=== PATIENT | male | born 1960 | race Caucasian/White ===

== ENCOUNTER 2020-10-07 09:23 | Emergency (ER) | payer OTHER ==
[2020-10-07 09:31] VITALS: BP 135/66; PULSE 118; RESP 16; TEMP 97.8
[2020-10-07] MEDS ORDERED: SODIUM CHLORIDE 0.9% 1,000 ML IV SCH (09:45)
--- NOTE | 2020-10-07 09:48 | ED ---
Lower Extremity Injury HPI - General Chief Complaint: Extremity Injury, Lower Stated Complaint: Stepped on nail/[facility] Time Seen by Provider: 10/07/20 09:33 Source: patient Mode of arrival: ambulatory Limitations: no limitations - History of Present Illness Initial Comments: 59-year-old male presents with left foot pain swelling and infection that he noticed yesterday. Patient states he's been stepping on a nail for the last 5 days that was embedded into his boot. Patient states he didn't notice the pain until yesterday. Patient did have low-grade fever of 99.9. Patient feels better today but it is sore to walk on. Patient does admit to having diabetes when he was younger but has not been to a doctor in over 20 years. Patient states he does check his blood sugars monthly and they're usually run about 150. Patient denies neuropathy. MD Complaint: foot injury -: days(s) (5) Place: work (nail in boot) Improves With: cold therapy, immobilization Worsens With: weight bearing, movement, palpation Context: stepped on nail Treatments Prior to Arrival: other (none) - Related Data Previous Rx's Medication Instructions Recorded Cephalexin [Keflex] 500 mg PO Q8HR #30 cap 10/07/20 Allergies Allergy/AdvReac Type Severity Reaction Status Date / Time No Known Allergies Allergy Verified 10/07/20 09:31 Review of Systems ROS Statement: Those systems with pertinent positive or pertinent negative responses have been documented in the HPI. ROS Other: All systems not noted in ROS Statement are negative. Constitutional: Reports: fever, chills. Denies: weakness Musculoskeletal: Reports: arthralgia (left foot) Past Medical History Additional Past Medical History / Comment(s): Dt controlled DM History of Any Multi-Drug Resistant Organisms: None Reported Past Surgical History: No Surgical Hx Reported, Orthopedic Surgery, Tonsillectomy Past Psychological History: No Psychological Hx Reported Smoking Status: Current every day smoker Past Alcohol Use History: Rare Past Drug Use History: None Reported General Exam Limitations: no limitations General appearance: alert, in no apparent distress Head exam: Present: atraumatic, normocephalic, normal inspection ENT exam: Present: normal exam, mucous membranes moist Respiratory exam: Present: normal lung sounds bilaterally. Absent: respiratory distress, wheezes, rales, rhonchi, stridor Cardiovascular Exam: Present: regular rate, normal rhythm, normal heart sounds. Absent: systolic murmur, diastolic murmur, rubs, gallop, clicks Left Hip exam: Present: full ROM Upper Leg exam: Present: normal inspection, full ROM. Absent: tenderness, swelling Knee exam: Present: normal inspection, full ROM. Absent: tenderness, swelling Lower Leg exam: Present: normal inspection, full ROM, swelling (distal LE). Absent: tenderness Ankle exam: Present: normal inspection, full ROM, tenderness. Absent: swelling (medial) Foot/Toe exam: Present: full ROM, tenderness, swelling, erythema, puncture wound (large ulcer .5 cm x 1 cm with skin breakdown and some drainage, large amounts of erythema, + 1 pitting edema. good pedal pulse ). Absent: normal inspection Neurovascular tendon exam: Present: no vascular compromise. Absent: pulse deficit, abnormal cap refill, sensory deficit Gait: observed and limited by pain (slight limp) Course Vital Signs 10/07/20 09:26 Temperature 97.8 F Pulse Rate 118 H Respiratory 16 Rate Blood Pressure 135/66 O2 Sat by Pulse 99 Oximetry Medical Decision Making - Medical Decision Making After reviewing labs noticed blood sugar of 572 discussed with patient that I think he should be admitted due to elevated blood sugar and diabetes. Patient refuses to stay he just wants an antibiotic and to be discharged. Patient attributes to the food that he ate this morning of a chocolate bar chocolate milk and hamburger. I tried to educate him on the fact that this has been elevated for a while but he does not agree. Patient is not wanting to be admitted today. His x-ray does not show any osteomyelitis. Patient will be discharged AMA on antibiotics and we will give him a low-dose insulin while in the emergency room. Patient needs close follow-up with family doctor and referral to an court transcriber. After talking with the nurse Josselin patient refused insulin and refuses any other treatment. Patient just wants to leave AMA with his prescription for antibiotic. Patient explained multiple times that he has critical blood sugar level along with critical infection that needs more attention than outpatient treatment at this time however patient refuses and leaves AMA - Lab Data Result diagrams: 10/07/20 09:56 10/07/20 09:56 Lab Results 10/07/20 10/07/20 10/07/20 Range/Units 09:56 09:56 10:12 WBC 9.3 (3.8-10.6) k/uL RBC 3.76 L (4.30-5.90) m/uL Hgb 11.9 L (13.0-17.5) gm/dL Hct 36.1 L (39.0-53.0) % MCV 96.0 (80.0-100.0) fL MCH 31.6 (25.0-35.0) pg MCHC 33.0 (31.0-37.0) g/dL RDW 11.9 (11.5-15.5) % Plt Count 437 (150-450) k/uL MPV 6.9 Neutrophils % 79 % Lymphocytes % 12 % Monocytes % 4 % Eosinophils % 3 % Basophils % 1 % Neutrophils # 7.3 (1.3-7.7) k/uL Lymphocytes # 1.1 (1.0-4.8) k/uL Monocytes # 0.3 (0-1.0) k/uL Eosinophils # 0.3 (0-0.7) k/uL Basophils # 0.0 (0-0.2) k/uL Sodium 134 L (137-145) mmol/L Potassium 5.1 (3.5-5.1) mmol/L Chloride 97 L (98-107) mmol/L Carbon Dioxide 26 (22-30) mmol/L Anion Gap 11 mmol/L BUN 27 H (9-20) mg/dL Creatinine 0.72 (0.66-1.25) mg/dL Est GFR (CKD-EPI)AfAm >90 (>60 ml/min/1.73 sqM) Est GFR (CKD-EPI)NonAf >90 (>60 ml/min/1.73 sqM) Glucose 572 H* (74-99) mg/dL Plasma Lactic Acid Darvin 1.0 (0.7-2.0) mmol/L Calcium 9.5 (8.4-10.2) mg/dL Total Bilirubin 0.5 (0.2-1.3) mg/dL AST 16 L (17-59) U/L ALT 12 (4-49) U/L Alkaline Phosphatase 97 (38-126) U/L Total Protein 6.3 (6.3-8.2) g/dL Albumin 3.3 L (3.5-5.0) g/dL Disposition Clinical Impression: Cellulitis, Wound cellulitis, Ulcer, Uncontrolled blood glucose Disposition: Left Against Medical Advice Condition: Critical Instructions (If sedation given, give patient instructions): How to Check your Blood Sugar (ED), Cellulitis (ED), Diabetic Foot Ulcers (ED), Type 2 Diabetes in Adults: New Diagnosis (ED) Prescriptions: Cephalexin [Keflex] 500 mg PO Q8HR #30 cap Is patient prescribed a controlled substance at d/c from ED?: No Referrals: None,Stated [Primary Care Provider] - 1-2 days Flynn Devi [STAFF PHYSICIAN] - 1-2 days Jeyson Cedeño MD [REFERRING] - 1-2 days Time of Disposition: 11:55
[2020-10-07 10:14] LABS: Basophils % (A) 1 %; Eosinophils # (A) 0.3 k/uL (0-0.7); Eosinophils % (A) 3 %; HCT 36.1 % (39.0-53.0); HGB 11.9 gm/dL (13.0-17.5); Lymphocytes # (A) 1.1 k/uL (1.0-4.8); Lymphocytes % (A) 12 %; MCH 31.6 pg (25.0-35.0); Mean Platelet Volume 6.9; Monocytes # (A) 0.3 k/uL (0-1.0); Monocytes % (A) 4 %; Neutrophils # (A) 7.3 k/uL (1.3-7.7); Neutrophils % (A) 79 %; Platelet Count 437 k/uL (150-450); RBC 3.76 m/uL (4.30-5.90); RDW 11.9 % (11.5-15.5); WBC 9.3 k/uL (3.8-10.6)
--- NOTE | 2020-10-07 10:23 | XR ---
EXAMINATION TYPE: XR foot complete LT DATE OF EXAM: 10/07/2020 CLINICAL HISTORY: pain TECHNIQUE: Frontal, lateral and oblique images of the left foot are obtained. COMPARISON: None. FINDINGS: There is no acute fracture/dislocation evident. The joint spaces appear within normal ingram its. Lateral soft tissue wound noted. No evidence for radiopaque foreign body. No evidence for osteom yelitis. IMPRESSION: There is no acute fracture or dislocation. ICD 10 NO FRACTURE, INITIAL EVALUATION
[2020-10-07 10:25] LABS: ALT 12 U/L (4-49); AST 16 U/L (17-59); African American GFR (CKD) >90 (>60 ml/min/1.73 sqM); Albumin 3.3 g/dL (3.5-5.0); Alkaline Phosphatase 97 U/L (38-126); Anion Gap 11 mmol/L; Blood Urea Nitrogen 27 mg/dL (9-20); Calcium 9.5 mg/dL (8.4-10.2); Carbon Dioxide 26 mmol/L (22-30); Chloride 97 mmol/L (98-107); Non-African American GFR(CKD) >90 (>60 ml/min/1.73 sqM); Potassium 5.1 mmol/L (3.5-5.1); Sodium 134 mmol/L (137-145); Total Bilirubin 0.5 mg/dL (0.2-1.3); Total Protein 6.3 g/dL (6.3-8.2)
[2020-10-07 10:48] LABS: Glucose 572 mg/dL (74-99)
[2020-10-07] MEDS ORDERED: INSULIN ASPART (NovoLOG) 100 UNIT/ML VIAL SQ ONE (11:04)
[2020-10-07 21:56] LABS: Hemoglobin A1C 14.6 % (4.0-6.0)
== END 2020-10-07 12:00 | disposition left against medical advice (07) ==
LOC: EC 09:23
DX: L03.116 Cellulitis of left lower limb (principal); E11.621 Type 2 diabetes mellitus with foot ulcer; L97.521 Non-pressure chronic ulcer of other part of left foot limited to breakdown of skin; E11.65 Type 2 diabetes mellitus with hyperglycemia; F17.200 Nicotine dependence, unspecified, uncomplicated; W45.0XXA Nail entering through skin, initial encounter
CPT/HCPCS: 96365; 99283; 36415; 80053; 83605; 85025; 87040; 87070; 87205; 83036; 73630; J0696

== ENCOUNTER 2020-11-02 08:19 | Inpatient (IN) | payer OTHER ==
[2020-11-02] MEDS ORDERED: HYDROmorphone 0.5 MG/0.5 ML SYRINGE IVP STA ×2 (08:35→10:16)
[2020-11-02] MEDS ORDERED: ONDANSETRON 4 MG/2 ML VIAL IVP STA (08:35)
[2020-11-02] MEDS ORDERED: VANCOMYCIN IV PER PHARMACY 1 EACH MISC MISCELLANE PRN (08:36)
[2020-11-02] MEDS ORDERED: PIPERACILLIN-TAZOBACTAM 3.375 GM in SODIUM CHLORIDE 0.9% 100 ML IVPB STA (08:36)
[2020-11-02] MEDS ORDERED: SODIUM CHLORIDE 0.9% 1,000 ML IV ONE ×3 (08:36→18:58)
[2020-11-02] MEDS ORDERED: SODIUM CHLORIDE 0.9% 2,000 ML IV ONE (08:37)
[2020-11-02] MEDS ORDERED: DIPH,PERTUS(ACELL)TETVAC-LF 0.5 ML VIAL IM ONE (08:56)
[2020-11-02] MEDS: SODIUM CHLORIDE 0.9% 1,000 ML IV SCH (09:00)
--- NOTE | 2020-11-02 09:01 | ED ---
Lower Extremity Injury HPI - General Source: patient, RN notes reviewed Mode of arrival: ambulatory Limitations: no limitations <Oscar Contreras - Last Filed: 11/02/20 10:32> <Yamil Voss - Last Filed: 11/02/20 10:52> - General Chief Complaint: Extremity Injury, Lower Stated Complaint: [facility] - Foot Injury Time Seen by Provider: 11/02/20 08:27 - History of Present Illness Initial Comments: This is a 60-year-old male presents emergency Department with chief complaint of an infection on the left foot. Patient states this started after having small nail in his boot which he did not know. Patient states that was rolling on his foot. Sterile a small infection states that his leg goes states it's very rafa nful, draining fluid, open wound. Patient states he cannot tolerate it has not been any treatment. Patient states his tetanus is not up-to-date. Patient denies any known fever. 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 (Oscar Contreras) - Related Data Previous Rx's Medication Instructions Recorded Cephalexin [Keflex] 500 mg PO Q8HR #30 cap 10/07/20 Allergies Allergy/AdvReac Type Severity Reaction Status Date / Time No Known Allergies Allergy Verified 11/02/20 08:22 Review of Systems ROS Other: All systems not noted in ROS Statement are negative. <Oscar Contreras - Last Filed: 11/02/20 10:32> ROS Other: All systems not noted in ROS Statement are negative. <Yamil Voss - Last Filed: 11/02/20 10:52> ROS Statement: Those systems with pertinent positive or pertinent negative responses have been documented in the HPI. Past Medical History Past Medical History: Diabetes Mellitus Additional Past Medical History / Comment(s): Dt controlled DM History of Any Multi-Drug Resistant Organisms: None Reported Past Surgical History: No Surgical Hx Reported, Orthopedic Surgery, Tonsillectomy Past Psychological History: No Psychological Hx Reported Smoking Status: Current every day smoker Past Alcohol Use History: Rare Past Drug Use History: None Reported <Oscar Contreras - Last Filed: 11/02/20 10:32> General Exam Limitations: no limitations General appearance: alert, in no apparent distress Neck exam: Present: normal inspection. Absent: tenderness, meningismus, lymphadenopathy Respiratory exam: Present: normal lung sounds bilaterally. Absent: respiratory distress, wheezes, rales, rhonchi, stridor Cardiovascular Exam: Present: normal rhythm, tachycardia, normal heart sounds. Absent: systolic murmur, diastolic murmur, rubs, gallop, clicks Extremities exam: Present: other (Left foot lateral to the dorsal and into the plantar surface is a large open peeling draining wound with open tissue, foul order) Neurological exam: Present: alert Skin exam: Present: warm, dry, intact, normal color. Absent: rash <Oscar Contreras - Last Filed: 11/02/20 10:32> Course Vital Signs 11/02/20 11/02/20 08:22 10:00 Temperature 98.6 F 98.4 F Pulse Rate 128 H 101 H Respiratory 18 18 Rate Blood Pressure 123/73 126/68 O2 Sat by Pulse 100 98 Oximetry Medical Decision Making - Lab Data Result diagrams: 11/02/20 08:49 11/02/20 08:49 <Oscar Contreras - Last Filed: 11/02/20 10:32> - Lab Data Result diagrams: 11/02/20 08:49 11/02/20 08:49 <Yamil Voss - Last Filed: 11/02/20 10:52> - Medical Decision Making 60-year-old male presented for left foot infection. Patient has a large wound on the lateral portion of his foot patient's found to have diabetic foot ulcer with osteomyelitis gas formation. Patient has left leg but doesn't fasciitis. Patient has mild hyponatremia, uncontrolled diabetes with hyperglycemia. Case was discussed with Dr. Rowell who accepts admission consult and case discussed with Dr. Gruber vascular who recommended CT of the leg this was ordered. Patient was initially administered and IV fluids, broad-spectrum antibiotics including Zosyn, vancomycin, clindamycin.. (Oscar Contreras) 60-year-old male with presented with one month history of left foot pain swelling. Patient has an open wet gangrene of the lateral foot with crepitus in the ankle and calf lateral aspect with pain, erythema. There is concern for deep space infection, neck testing fasciitis. Workup was initiated he has a leukocytosis. X-ray confirming soft tissue gas. We did initiate Zosyn and vancomycin while in the emergency department as well as clindamycin. I discussed case with Dr. Najera covering for vascular surgery who recommends patient kept nothing by mouth, requests CT of the leg with contrast and will evaluate the patient urgently. Case discussed with Dr. Loo who will admit. (Yamil Voss) - Lab Data Lab Results 11/02/20 11/02/20 11/02/20 Range/Units 08:49 08:49 08:49 WBC 16.4 H (3.8-10.6) k/uL RBC 3.25 L (4.30-5.90) m/uL Hgb 9.8 L D (13.0-17.5) gm/dL Hct 31.9 L (39.0-53.0) % MCV 98.1 (80.0-100.0) fL MCH 30.1 (25.0-35.0) pg MCHC 30.7 L (31.0-37.0) g/dL RDW 13.8 (11.5-15.5) % Plt Count 487 H (150-450) k/uL MPV 7.7 Neutrophils % 92 % Lymphocytes % 3 % Monocytes % 4 % Eosinophils % 0 % Basophils % 0 % Neutrophils # 15.1 H (1.3-7.7) k/uL Lymphocytes # 0.5 L (1.0-4.8) k/uL Monocytes # 0.6 (0-1.0) k/uL Eosinophils # 0.0 (0-0.7) k/uL Basophils # 0.0 (0-0.2) k/uL Hypochromasia Slight Sodium 124 L (137-145) mmol/L Potassium 4.7 (3.5-5.1) mmol/L Chloride 89 L (98-107) mmol/L Carbon Dioxide 24 (22-30) mmol/L Anion Gap 11 mmol/L BUN 22 H (9-20) mg/dL Creatinine 0.65 L (0.66-1.25) mg/dL Est GFR (CKD-EPI)AfAm >90 (>60 ml/min/1.73 sqM) Est GFR (CKD-EPI)NonAf >90 (>60 ml/min/1.73 sqM) Glucose 352 H (74-99) mg/dL Plasma Lactic Acid Darvin 2.1 H* (0.7-2.0) mmol/L Calcium 8.3 L (8.4-10.2) mg/dL Total Bilirubin 0.9 (0.2-1.3) mg/dL AST 56 (17-59) U/L ALT 29 (4-49) U/L Alkaline Phosphatase 148 H (38-126) U/L C-Reactive Protein 33.1 H (<1.0) mg/dL Total Protein 6.2 L (6.3-8.2) g/dL Albumin 2.8 L (3.5-5.0) g/dL Critical Care Time Critical Care Time: Yes Total Critical Care Time: 35 <Oscar Contreras - Last Filed: 11/02/20 10:32> Disposition <Oscar Contreras - Last Filed: 11/02/20 10:32> <Yamil Voss - Last Filed: 11/02/20 10:52> Clinical Impression: Necrotizing fasciitis of lower leg, Diabetic ulcer of left foot, Foot osteomyelitis, left, Hyponatremia, Hyperglycemia Disposition: ADMITTED IP TO THIS [facility] Condition: Serious Referrals: None,Stated [Primary Care Provider] - 1-2 days
[2020-11-02] MEDS ORDERED: VANCOMYCIN 1,750 MG in SODIUM CHLORIDE 0.9% 500 ML 500 ML IVPB ONE (09:30)
[2020-11-02 09:47] LABS: ALT 29 U/L (4-49); AST 56 U/L (17-59); African American GFR (CKD) >90 (>60 ml/min/1.73 sqM); Albumin 2.8 g/dL (3.5-5.0); Alkaline Phosphatase 148 U/L (38-126); Anion Gap 11 mmol/L; Blood Urea Nitrogen 22 mg/dL (9-20); Calcium 8.3 mg/dL (8.4-10.2); Carbon Dioxide 24 mmol/L (22-30); Chloride 89 mmol/L (98-107); Glucose 352 mg/dL (74-99); Non-African American GFR(CKD) >90 (>60 ml/min/1.73 sqM); Potassium 4.7 mmol/L (3.5-5.1); Sodium 124 mmol/L (137-145); Total Bilirubin 0.9 mg/dL (0.2-1.3); Total Protein 6.2 g/dL (6.3-8.2)
[2020-11-02] MEDS ORDERED: CLINDAMYCIN 600 MG in DEXTROSE 5% IN WATER 50 ML IVPB STA ×2 (10:16)
[2020-11-02 10:20] LABS: Basophils % (A) 0 %; Eosinophils % (A) 0 %; HCT 31.9 % (39.0-53.0); Hypochromasia Slight; Lymphocytes # (A) 0.5 k/uL (1.0-4.8); Lymphocytes % (A) 3 %; MCH 30.1 pg (25.0-35.0); MCHC 30.7 g/dL (31.0-37.0); MCV 98.1 fL (80.0-100.0); Mean Platelet Volume 7.7; Monocytes # (A) 0.6 k/uL (0-1.0); Monocytes % (A) 4 %; Neutrophils # (A) 15.1 k/uL (1.3-7.7); Neutrophils % (A) 92 %; Platelet Count 487 k/uL (150-450); RBC 3.25 m/uL (4.30-5.90); RDW 13.8 % (11.5-15.5); WBC 16.4 k/uL (3.8-10.6)
--- NOTE | 2020-11-02 10:20 | XR ---
EXAMINATION TYPE: XR foot complete LT DATE OF EXAM: 11/02/2020 CLINICAL HISTORY: Infection TECHNIQUE: Frontal, lateral, and oblique images of the left foot are obtained. COMPARISON: 10/07/2020 FINDINGS: There is a soft tissue defect of the lateral foot at the base of the fifth metatarsal with new lucenc y of of the base of the fifth metatarsal, worrisome for osteomyelitis. There is also extensive soft t issue gas seen throughout the midfoot and forefoot both dorsally and plantarly which is highly concer pastora for necrotizing fasciitis with also soft tissue gas extending into the lower calf. IMPRESSION: There is a soft tissue defect of the lateral foot at the base of the fifth metatarsal with new lucenc y of of the base of the fifth metatarsal, worrisome for OSTEOMYELITIS. There is also extensive soft t issue gas seen throughout the midfoot and forefoot both dorsally and plantarly which is highly concer pastora for NECROTIZING FASCIITIS with also soft tissue gas extending into the lower calf. X-rays could be obtained to evaluate for soft tissue gas, as clinically warranted. Findings communicated to the ordering clinician (10:15 AM 11/02/2020 via telephone) with the recommend ation for emergent surgical referral for possible necrotizing fasciitis and plain radiographs of the tibia/fibula.
[2020-11-02 10:23] LABS: HGB 9.8 gm/dL (13.0-17.5)
[2020-11-02] MEDS ORDERED: ONDANSETRON 4 MG/2 ML VIAL IVP PRN (10:29)
[2020-11-02] MEDS ORDERED: NALOXONE 0.4 MG/ML 1 ML VIAL IV PRN (10:29)
[2020-11-02 10:33] LABS: C Reactive Protein 33.1 mg/dL (<1.0)
--- NOTE | 2020-11-02 11:37 | CT ---
EXAMINATION TYPE: CT lower extremity LT w con DATE OF EXAM: 11/02/2020 COMPARISON: None HISTORY: left foot infection, left leg swelling and redness CT DLP: 842.2 mGycm Automated exposure control for dose reduction was used. CONTRAST: Performed with IV Contrast, patient injected with 100 mL of Isovue 300. Unenhanced CT of the left low er extremity was performed from the left foot FINDINGS: There is extensive soft tissue edema involving the left foot soft tissue ulceration. There is air wit hin the soft tissues as well as the osseous structures of the midfoot and the bases of the second thr ough 5 digits with osseous defects seen compatible with osteomyelitis. Air is noted to extend into th e calf and up into the left thigh medially. There is evidence of left inguinal adenopathy. IMPRESSION: 1. Findings are compatible with extensive osteomyelitis of the left foot with intraosseous air and meredith ny destructive process noted at the bases of the second third fourth and fifth metatarsals. There is soft tissue ulceration noted with extensive soft tissue gas identified throughout the mid foot and fo refoot extending into the calf and thigh felt to reflect necrotizing fasciitis.
--- NOTE | 2020-11-02 13:07 | P.GSCN ---
History of Present Illness Consult date: 11/02/20 Reason for Consult: Necrotizing fasciitis of left foot Requesting physician: Oscar Contreras History of present illness: This is a 60-year-old white male who presented to the emergency department with complaints of a left foot wound. Patient states the wound started 5-6 weeks ago after he had a nail in his work boot and wore the boot for several days not realizing the nail was rubbing on his foot. He was seen at the end of September in the emergency department, he left AGAINST MEDICAL ADVICE and was given oral Keflex and completed the antibiotic. He states he did not have any outpatient follow-up. He states he the wound has progressively gotten worse despite the antibiotics and is causing him significant pain. He states his pain is a 10 out of 10, he has copious amounts of drainage from the foot. He denies any fever or chills. He denies any chest pain, shortness of breath, nausea, vomiting, or abdominal pain. He has a past medical history including diabetes mellitus and is a current smoker of one pack per day. He underwent an x-ray of the left foot that shows soft tissue defect of the lateral foot at the base of the fifth metatarsal with new lucency of the base of the metatarsal worrisome for oste omyelitis. There is extensive soft tissue gas seen throughout the midfoot and forefoot both dorsally and plantarly which is highly concerning for necrotizing fasciitis was also soft tissue gas extending into the lower calf. He also underwent a CT of the left lower extremity that showed findings compatible with extensive osteomyelitis of the left lobe with intraosseous air and bony destructive process noted at the bases of the second third fourth and fifth metatarsals. There is soft tissue ulceration noted with extensive soft tissue gas identified throughout the midfoot and forefoot extending into the calf and thigh felt to reflect necrotizing fasciitis. Review of Systems A 14 point review of systems was completed and all pertinent positives and negatives as stated in the HPI. Past Medical History Past Medical History: Diabetes Mellitus Additional Past Medical History / Comment(s): Dt controlled DM History of Any Multi-Drug Resistant Organisms: None Reported Past Surgical History: No Surgical Hx Reported, Orthopedic Surgery, Tonsillectomy Past Psychological History: No Psychological Hx Reported Smoking Status: Current every day smoker Past Alcohol Use History: Rare Past Drug Use History: None Reported Medications and Allergies Home Medications Medication Instructions Recorded Confirmed Type No Known Home Medications 11/02/20 11/02/20 History Allergies Allergy/AdvReac Type Severity Reaction Status Date / Time No Known Allergies Allergy Verified 11/02/20 11:23 Surgical - Exam Vital Signs Temp Pulse Resp BP Pulse Ox 98.6 F 128 H 18 123/73 100 11/02/20 08:22 11/02/20 08:22 11/02/20 08:22 11/02/20 08:22 11/02/20 08:22 General appearance: The patient is alert, oriented, in no acute distress. HET: Head is normocephalic and atraumatic. Pupils are equal and reactive. Oropharynx is clear without lesions. Neck: Supple without lymphadenopathy. Trachea midline. Heart: S1 S2. Regular rate and rhythm. Lungs: No crackles or wheezes are heard. Abdomen: Soft, nontender, nondistended with bowel sounds. No peritoneal signs. No palpable organomegaly or masses. Extremities: Normal skin color and turgor. No cyanosis, rash, ulceration, clubbing, or edema. Radial and pedal pulses are 2/4 bilaterally. Neurological: No focal deficits. Strength and sensation are grossly intact. Results - Labs 11/02/20 08:49 11/02/20 08:49 Abnormal Lab Results - Last 24 Hours (Table) 11/02/20 11/02/20 11/02/20 Range/Units 08:49 08:49 08:49 WBC 16.4 H (3.8-10.6) k/uL RBC 3.25 L (4.30-5.90) m/uL Hgb 9.8 L D (13.0-17.5) gm/dL Hct 31.9 L (39.0-53.0) % MCHC 30.7 L (31.0-37.0) g/dL Plt Count 487 H (150-450) k/uL Neutrophils # 15.1 H (1.3-7.7) k/uL Lymphocytes # 0.5 L (1.0-4.8) k/uL Sodium 124 L (137-145) mmol/L Chloride 89 L (98-107) mmol/L BUN 22 H (9-20) mg/dL Creatinine 0.65 L (0.66-1.25) mg/dL Glucose 352 H (74-99) mg/dL Plasma Lactic Acid Darvin 2.1 H* (0.7-2.0) mmol/L Calcium 8.3 L (8.4-10.2) mg/dL Alkaline Phosphatase 148 H (38-126) U/L C-Reactive Protein 33.1 H (<1.0) mg/dL Total Protein 6.2 L (6.3-8.2) g/dL Albumin 2.8 L (3.5-5.0) g/dL Diabetes panel 11/02/20 Range/Units 08:49 Sodium 124 L (137-145) mmol/L Potassium 4.7 (3.5-5.1) mmol/L Chloride 89 L (98-107) mmol/L Carbon Dioxide 24 (22-30) mmol/L BUN 22 H (9-20) mg/dL Creatinine 0.65 L (0.66-1.25) mg/dL Glucose 352 H (74-99) mg/dL Calcium 8.3 L (8.4-10.2) mg/dL AST 56 (17-59) U/L ALT 29 (4-49) U/L Alkaline Phosphatase 148 H (38-126) U/L Total Protein 6.2 L (6.3-8.2) g/dL Albumin 2.8 L (3.5-5.0) g/dL Calcium panel 11/02/20 Range/Units 08:49 Calcium 8.3 L (8.4-10.2) mg/dL Albumin 2.8 L (3.5-5.0) g/dL Pituitary panel 11/02/20 Range/Units 08:49 Sodium 124 L (137-145) mmol/L Potassium 4.7 (3.5-5.1) mmol/L Chloride 89 L (98-107) mmol/L Carbon Dioxide 24 (22-30) mmol/L BUN 22 H (9-20) mg/dL Creatinine 0.65 L (0.66-1.25) mg/dL Glucose 352 H (74-99) mg/dL Calcium 8.3 L (8.4-10.2) mg/dL Adrenal panel 11/02/20 Range/Units 08:49 Sodium 124 L (137-145) mmol/L Potassium 4.7 (3.5-5.1) mmol/L Chloride 89 L (98-107) mmol/L Carbon Dioxide 24 (22-30) mmol/L BUN 22 H (9-20) mg/dL Creatinine 0.65 L (0.66-1.25) mg/dL Glucose 352 H (74-99) mg/dL Calcium 8.3 L (8.4-10.2) mg/dL Total Bilirubin 0.9 (0.2-1.3) mg/dL AST 56 (17-59) U/L ALT 29 (4-49) U/L Alkaline Phosphatase 148 H (38-126) U/L Total Protein 6.2 L (6.3-8.2) g/dL Albumin 2.8 L (3.5-5.0) g/dL - Imaging Comments: x-ray of the left foot that shows soft tissue defect of the lateral foot at the base of the fifth metatarsal with new lucency of the base of the metatarsal worrisome for osteomyelitis. There is extensive soft tissue gas seen throughout the midfoot and forefoot both dorsally and plantarly which is highly concerning for necrotizing fasciitis was also soft tissue gas extending into the lower calf. CT of the left lower extremity that showed findings compatible with extensive osteomyelitis of the left lobe with intraosseous air and bony destructive process noted at the bases of the second third fourth and fifth metatarsals. There is soft tissue ulceration noted with extensive soft tissue gas identified throughout the midfoot and forefoot extending into the calf and thigh felt to reflect necrotizing fasciitis. Assessment and Plan Assessment: 1. Left foot diabetic wound with possible necrotizing fasciitis 2. Diabetes mellitus 3. Current smoker Plan: 1. Continue IV antibiotics 2. X-ray and CT of left lower extremity reviewed 3. Consult infectious disease 4. Keep nothing by mouth 5. Patient scheduled to go to the operating room for left foot wound debridement, possible below the knee amputation, possible [id number] amputation 6. Further recommendations per vascular surgeon was further evaluated Thank you for this consultation and allowing us take part in the plan of care of your patient during his hospital stay The impression and plan of care has been dictated as directed. Dr. Najera I performed a history and examination of this patient, discussed the same with the dictator. I agree with the dictator's note ,documented as a scribe. Any additional findings or plans will be noted.
[2020-11-02] MEDS ORDERED: ACETAMINOPHEN IV (For NPO) 1,000 MG in EMPTY BAG 1 BAG IVPB STA (13:24)
[2020-11-02 13:45] LABS: Erythrocyte Sedimentation Rate 108 mm/hr (0-15)
[2020-11-02] MEDS ORDERED: IV FLUID CONTINUATION 1,000 ML IV ONE (14:22)
[2020-11-02 14:35] LABS: Glucose,Whole Blood 340 mg/dL (75-99)
[2020-11-02 14:35] LABS: Glucose,Whole Blood 354 mg/dL (75-99)
[2020-11-02] MEDS ORDERED: INSULIN ASPART (NovoLOG) 100 UNIT/ML VIAL SQ ONE (15:30)
[2020-11-02] MEDS ORDERED: ROCURONIUM 10 MG/ML (5 ML VIAL) IV ONE (16:14)
[2020-11-02] MEDS ORDERED: SUCCINYLCHOLINE CHLORIDE 100 MG/5 ML SYR IV ONE (16:14)
[2020-11-02] MEDS ORDERED: PROPOFOL 10 MG/ML 20 ML VIAL IV ONE (16:14)
[2020-11-02] MEDS ORDERED: NEOSTIGMINE 1 MG/ML 10 ML VIAL ONE (16:14)
[2020-11-02] MEDS ORDERED: PHENYLEPHRINE-0.9% NACL SYG 1,000 MCG/10 ML SYRINGE ONE (16:14)
[2020-11-02] MEDS ORDERED: MIDAZOLAM 2 MG/2 ML VIAL ONE (16:14)
[2020-11-02] MEDS ORDERED: LIDOCAINE 1% INJ 10MG/ML (20 ML MDV) ONE (16:14)
[2020-11-02] MEDS ORDERED: INSULIN REGULAR 100 UNIT/ML VIAL (IV) IV ONE (16:14)
[2020-11-02] MEDS ORDERED: GLYCOPYRROLATE 0.2 MG/ML 2 ML VIAL ONE (16:14)
[2020-11-02] MEDS ORDERED: fentaNYL (PF) 50 MCG/ML 2 ML AMP ONE (16:14)
[2020-11-02] MEDS ORDERED: HYDROmorphone (PF) 1 MG/ML ONE (16:14)
[2020-11-02 17:11] LABS: Glucose,Whole Blood 292 mg/dL (75-99)
[2020-11-02 18:00] LABS: Glucose,Whole Blood 276 mg/dL (75-99)
--- NOTE | 2020-11-02 18:05 | P.OP ---
Date of Procedure: 11/02/20 Preoperative Diagnosis: Gas gangrene left lower extremity extending from the foot to the mid thigh level. Postoperative Diagnosis: Same. Procedure(s) Performed: #1: Left kldgg-amz-qral amputation. #2: Application of negative pressure wound VAC therapy greater than 50 cm. Anesthesia: CATHYA Surgeon: Kelvin Najera Estimated Blood Loss (ml): 100 Pathology: none sent Condition: stable Disposition: floor Indications for Procedure: Patient is a 60-year-old male with long-standing history of diabetes mellitus as well as tobacco use who presented today to the emergency room with a chief complaint of open wound of his left foot. The patient met criteria for sepsis. Patient did eventually undergo computed tomography scan of his left lower extremity which demonstrated gas in the soft tissues extending from the foot to the calf and popliteal area to the posterior aspect of the left mid thigh. Examination demonstrated femoral popliteal pulses to be intact although DP and PT pulses are absent on the left. A stage IV wound was located on the lateral aspect of the left foot near the fifth metatarsal head with bowel smelling drainage coming from the wound. Crepitus of the soft tissue was noted to the mid thigh level. In order to control the advanced infectious process was felt the patient would be best served by [id number]-[id number] amputation as the leg was clearly nonviable. The procedure, risk and benefits were discussed with the patient. Patient wished to proceed. Description of Procedure: Patient was brought to the [facility] and placed in supine position Mr. general endotracheal anesthesia delivered by the department of anesthesiology. Patient had artery been placed on intravenously administered antibiotics. The left lobe STEMI sterilely prepped and draped in usual manner. [place] type incision was made in the skin and carried down through the soft tissues. Hemostasis was achieved using electrocautery. Quadriceps muscles were transected with electrocautery. The femoral artery and vein were identified. These were doubly clamped, transected and ligated. The femoral nerve was likewise clamped transected and ligated as proximally as possible. The periosteum of the femur was mobilized and utilizing a power saw of the femur was transected. The amputation was then completed with an amputation knife. The wound was inspected for hemostasis and this was judged be adequate. The wound was then irrigated copiously with saline solution and a black sponge wound VAC was placed in the wound with good seal noted. A culture of the infected tissues was obtained prior to closure. Patient was taken to the recovery area satisfactory and stable condition. Plan patient will return to the operating room and approximate 48 hours with anticipation of being able to perform a delayed primary closure of his wound.
--- NOTE | 2020-11-02 18:17 | HP ---
HISTORY AND PHYSICAL A 60-year-old white male who was here about 5-6 weeks ago with a wound on his foot. He was sent home with antibiotics. He never followed up with anybody or apparently he left against medical advice and went home. He comes back today. His pain is 10/10. He apparently has infection and gas under the skin seen to the mid foot. He is scheduled to get a below-knee amputation, as CT scan showed extensive osteomyelitis of the left leg. He has some bony destructive processes in the metatarsals. REVIEW OF SYMPTOMS: A 14-point review of systems otherwise is negative. PAST HISTORY: Diabetes mellitus, poorly controlled. MEDICINES: None. ALLERGIES: None. PHYSICAL EXAMINATION: VITAL SIGNS: Temperature is 98.6, pulse is 120s in the ER, respiratory 16 to 18, blood pressure 120s over 70s, O2 100%. HEENT: Normocephalic, atraumatic. Pupils equal, round, reactive. LUNGS: Clear. HEART: S1, S2. ABDOMEN: Soft. EXTREMITIES: As mentioned above. NEUROLOGIC: Cranial nerves are intact. LABORATORY DATA: Hemoglobin is 11.8, white count is 16.4, sodium 124, BUN is 22, creatinine 0.65, glucose 352. Lactic acid 2.1. ASSESSMENT: 1. Left foot diabetic wound with possible necrotizing fasciitis. 2. Uncontrolled diabetes mellitus. 3. Nicotine addiction. Continue IV antibiotics. Smoking cessation. Wound debridement versus amputation to be done today per Vascular secondary to extensive osteomyelitis of the left toe, interosseous and bony destruction 2nd to 5th metatarsals. Do Accu-Chek protocol. Treat with broad-spectrum antibiotics. Await for Vascular Surgeon. MMODL / IJN: [id number] /
[2020-11-02] MEDS: CEFEPIME 2 GM in SODIUM CHLORIDE 0.9% 100 ML IVPB SCH ×2 (19:21→23:35)
[2020-11-02 20:08] LABS: Glucose,Whole Blood 188 mg/dL (75-99)
[2020-11-02] MEDS: CLINDAMYCIN 900 MG in DEXTROSE 5% IN WATER 50 ML IVPB SCH ×2 (20:46)
[2020-11-02] MEDS: VANCOMYCIN 1,500 MG in SODIUM CHLORIDE 0.9% 250 ML IVPB SCH (20:46)
[2020-11-02] MEDS: INSULIN ASPART (NovoLOG) 100 UNIT/ML VIAL SQ SCH (20:58)
--- NOTE | 2020-11-02 23:51 | P.CONS ---
History of Present Illness - Reason for Consult Consult date: 11/02/20 necrotizing infection Requesting physician: Chicho Loo - Chief Complaint left foot nonhealing wound and pain x few days - History of Present Illness Patient is a 60-year-old male presenting to the ER this morning for evaluation of left foot pain swelling and redness present with the patient symptoms started a few weeks ago as the patient did have an injury from a needle in his boot with resultant laceration to the left foot lateral border area patient mention he did came to the ER about 2 to 3 weeks ago however was sent home is not really sure if he received an antibiotic or not patient now presenting back to the ER this morning for worsening of the wound to the left foot lateral border along with the pain and the swelling that has been extending to the left lower leg injury patient is going to be to be throbbing intensity 110/10 with no radiation with associated swelling redness and did have some drainage from his left foot wound area patient on presentation hospitalization was afebrile subjective spiked a fever of 102.74 The patient is tachycardic and utilizing a 16.4 creatinine was 0.65 the patient has been started on vancomycin infectious was consulted for further management patient did have x-rays of the foot which show soft tissue defect concerning for osteomyelitis of the left fifth metatarsal extensive soft tissue gas seen within midfoot and forefoot subsequently he did have a lower extremity CT which confirmed the finding and did mention the left extremity to the left lower leg CT was reviewed with the radiologist infectious disease was consulted for further management of antibiotic therapy. Past Medical History Past Medical History: Diabetes Mellitus Additional Past Medical History / Comment(s): Dt controlled DM History of Any Multi-Drug Resistant Organisms: None Reported Past Surgical History: No Surgical Hx Reported, Orthopedic Surgery, Tonsillectomy Past Psychological History: No Psychological Hx Reported Smoking Status: Current every day smoker Past Alcohol Use History: Rare Past Drug Use History: None Reported Medications and Allergies Home Medications Medication Instructions Recorded Confirmed Type No Known Home Medications 11/02/20 11/02/20 History Allergies Allergy/AdvReac Type Severity Reaction Status Date / Time No Known Allergies Allergy Verified 11/02/20 11:23 Physical Exam Vitals: Vital Signs Temp Pulse Resp BP Pulse Ox 11/02/20 10:00 98.4 F 101 H 18 126/68 98 11/02/20 08:22 98.6 F 128 H 18 123/73 100 Intake and Output 11/01/20 11/02/20 11/02/20 22:59 06:59 14:59 Other: Weight 83.915 kg Results CBC & Chem 7: 11/02/20 08:49 11/02/20 08:49 Labs: Abnormal Lab Results - Last 24 Hours (Table) 11/02/20 11/02/20 11/02/20 Range/Units 08:49 08:49 08:49 WBC 16.4 H (3.8-10.6) k/uL RBC 3.25 L (4.30-5.90) m/uL Hgb 9.8 L D (13.0-17.5) gm/dL Hct 31.9 L (39.0-53.0) % MCHC 30.7 L (31.0-37.0) g/dL Plt Count 487 H (150-450) k/uL Neutrophils # 15.1 H (1.3-7.7) k/uL Lymphocytes # 0.5 L (1.0-4.8) k/uL Sodium 124 L (137-145) mmol/L Chloride 89 L (98-107) mmol/L BUN 22 H (9-20) mg/dL Creatinine 0.65 L (0.66-1.25) mg/dL Glucose 352 H (74-99) mg/dL Plasma Lactic Acid Darvin 2.1 H* (0.7-2.0) mmol/L Calcium 8.3 L (8.4-10.2) mg/dL Alkaline Phosphatase 148 H (38-126) U/L C-Reactive Protein 33.1 H (<1.0) mg/dL Total Protein 6.2 L (6.3-8.2) g/dL Albumin 2.8 L (3.5-5.0) g/dL Assessment and Plan Assessment: -patient presented to hospital with sepsis in the sputum, fever tachycardia elevated white count sources left diabetic foot infection with a wound to the left foot lateral border and concern for necrotizing infection involving the foot and the leg will be recorded for the gram-positive as well as gram-negative in this patient with underlying diabetes uncontrolled (1) Diabetic ulcer of left foot Current Visit: Yes Status: Acute Code(s): E11.621 - TYPE 2 DIABETES MELLITUS WITH FOOT ULCER; L97.529 - NON-PRESSURE CHRONIC ULCER OTH PRT LEFT FOOT W UNSP SEVERITY SNOMED Code(s): 734277657 (2) Foot osteomyelitis, left Current Visit: Yes Status: Acute Code(s): M86.9 - OSTEOMYELITIS, UNSPECIFIED SNOMED Code(s): 9534481117133915 (3) Necrotizing fasciitis of lower leg Current Visit: Yes Status: Acute Code(s): M72.6 - NECROTIZING FASCIITIS SNOMED Code(s): 55524337 Plan: 1-with awaiting further surgical and deep culture 2-vancomycin pharmacy to dose her with a target trough of 15 while watching her kidney function and Vanco trough closely. 3-we will add cefepime 2 g every 8 and clindamycin 900 every 8 We will follow on clinical condition and cultures to further adjust medication if needed Thank you for this consultation we will follow the patient along with you Time with Patient: Greater than 30
[2020-11-03] MEDS: VANCOMYCIN 1,500 MG in SODIUM CHLORIDE 0.9% 250 ML IVPB SCH ×3 (02:05→20:24)
[2020-11-03] MEDS: HYDROmorphone 0.5 MG/0.5 ML SYRINGE IVP PRN ×5 (02:41→20:28)
[2020-11-03] MEDS: CLINDAMYCIN 900 MG in DEXTROSE 5% IN WATER 50 ML IVPB SCH ×6 (04:02→20:24)
[2020-11-03 06:42] LABS: Glucose,Whole Blood 195 mg/dL (75-99)
[2020-11-03] MEDS: SODIUM CHLORIDE 0.9% 1,000 ML IV SCH ×3 (07:00→16:02)
[2020-11-03] MEDS: INSULIN ASPART (NovoLOG) 100 UNIT/ML VIAL SQ SCH ×4 (08:05→20:24)
[2020-11-03] MEDS: CEFEPIME 2 GM in SODIUM CHLORIDE 0.9% 100 ML IVPB SCH ×2 (08:06→16:05)
[2020-11-03 08:38] LABS: ALT 25 U/L (4-49); AST 42 U/L (17-59); African American GFR (CKD) >90 (>60 ml/min/1.73 sqM); Albumin 2.1 g/dL (3.5-5.0); Albumin/Globulin Ratio 0.7; Alkaline Phosphatase 87 U/L (38-126); Anion Gap 5 mmol/L; Blood Urea Nitrogen 18 mg/dL (9-20); Carbon Dioxide 24 mmol/L (22-30); Chloride 100 mmol/L (98-107); Globulin 2.9 g/dL; Glucose 166 mg/dL (74-99); Non-African American GFR(CKD) >90 (>60 ml/min/1.73 sqM); Potassium 4.1 mmol/L (3.5-5.1); Sodium 129 mmol/L (137-145); Total Bilirubin 0.5 mg/dL (0.2-1.3)
[2020-11-03 11:06] LABS: HCT 22.6 % (39.6-50.0); HGB 7.2 g/dL (13.0-17.0); MCH 29.9 pg (27.0-32.0); MCHC 31.9 g/dL (32.0-37.0); MCV 93.8 fL (80.0-97.0); Mean Platelet Volume 9.9 fL (9.5-12.2); Platelet Count 339 X 10*3/uL (140-440); RBC 2.41 X 10*6/uL (4.40-5.60); RDW 13.4 % (11.5-14.5); WBC 12.22 X 10*3/uL (4.50-10.00)
[2020-11-03 11:42] LABS: Glucose,Whole Blood 272 mg/dL (75-99)
[2020-11-03 12:11] LABS: Basophils # (A) 0.03 X 10*3/uL (0.00-0.10); Basophils % (A) 0.2 %; Eosinophils # (A) 0.04 X 10*3/uL (0.04-0.35); Eosinophils % (A) 0.3 %; Lymphocytes # (A) 1.02 X 10*3/uL (0.90-5.00); Lymphocytes % (A) 8.3 %; Macrocytosis (M) 2+; Monocytes % (A) 5.7 %; Neutrophils # (A) 10.36 X 10*3/uL (1.80-7.70); Neutrophils % (A) 84.9 %
[2020-11-03 14:50] VITALS: BMI 25.1
[2020-11-03 16:28] LABS: Glucose,Whole Blood 280 mg/dL (75-99)
[2020-11-03] MEDS ORDERED: VANCOMYCIN TROUGH DUE 1 EACH MISC MISCELLANE ONE (17:00)
--- NOTE | 2020-11-03 17:01 | P.PN ---
Subjective Progress Note Date: 11/03/20 Patient seen and examined. Doing well relatively overall. Pain is relatively well controlled. No chest pains or shortness of breath Objective - Vital Signs Vital signs: Vital Signs Temp 98.4 F 11/03/20 14:00 Pulse 94 11/03/20 14:00 Resp 17 11/03/20 14:00 BP 102/56 11/03/20 14:00 Pulse Ox 95 11/03/20 14:00 Intake & Output 11/02/20 11/03/20 11/03/20 18:59 06:59 18:59 Intake Total 925 2650 800 Output Total 350 Balance 575 2650 800 Weight 84 kg 84 kg Intake: IV 925 Intake, IV Titration 2250 Amount Cefepime 2 gm In Sodium 100 Chloride 0.9% 100 ml @ 25 mls/hr IVPB Q8HR COUNT INCLUDES THE [facility] Rx# :[id number] Clindamycin 600 mg In 50 Dextrose 5% in Water 50 ml @ 50 mls/hr IVPB ONCE [facility] Rx#:[id number] Clindamycin 900 mg In 50 Dextrose 5% in Water 50 ml @ 50 mls/hr IVPB Q8H COUNT INCLUDES THE [facility] Rx#:[id number] Sodium Chloride 0.9% 1, 1300 000 ml @ 130 mls/hr IV . Q7H42M COUNT INCLUDES THE [facility] Rx#:[id number] Vancomycin 1,500 mg In 250 Sodium Chloride 0.9% 250 ml @ 125 mls/hr IVPB Q8H COUNT INCLUDES THE [facility] Rx#:[id number] Vancomycin 1,750 mg In 500 Sodium Chloride 0.9% 500 ml 500 ml @ 167 mls/hr IVPB ONCE [facility] Rx#: [id number] Oral 400 800 Output: Urine 250 Estimated Blood Loss 100 - Exam Gen. a pleasant cooperative male in no acute distress. HEENT is normal cephalic, atraumatic, excellent motion intact. Heart appears regular. Lungs are clear bilaterally. Abdomen is soft. Left lower extremity wound VAC intact. Periwound area appears clean and dry. No erythema or drainage. No crepitus noted. - Labs CBC & Chem 7: 11/03/20 07:19 11/03/20 07:19 Labs: Abnormal Lab Results - Last 24 Hours (Table) 11/02/20 11/02/20 11/02/20 Range/Units 17:03 17:49 20:06 WBC (4.50-10.00) X 10*3/uL RBC (4.40-5.60) X 10*6/uL Hgb (13.0-17.0) g/dL Hct (39.6-50.0) % MCHC (32.0-37.0) g/dL Immature Gran # (0.00-0.04) X 10*3/uL Neutrophils # (1.80-7.70) X 10*3/uL Sodium (137-145) mmol/L Creatinine (0.66-1.25) mg/dL Glucose (74-99) mg/dL POC Glucose (mg/dL) 292 H 276 H 188 H (75-99) mg/dL Calcium (8.4-10.2) mg/dL Total Protein (6.3-8.2) g/dL Albumin (3.5-5.0) g/dL 11/03/20 11/03/20 11/03/20 Range/Units 06:40 07:19 07:19 WBC 12.22 H (4.50-10.00) X 10*3/uL RBC 2.41 L (4.40-5.60) X 10*6/uL Hgb 7.2 L (13.0-17.0) g/dL Hct 22.6 L (39.6-50.0) % MCHC 31.9 L (32.0-37.0) g/dL Immature Gran # 0.07 H (0.00-0.04) X 10*3/uL Neutrophils # 10.36 H (1.80-7.70) X 10*3/uL Sodium 129 L (137-145) mmol/L Creatinine 0.56 L (0.66-1.25) mg/dL Glucose 166 H (74-99) mg/dL POC Glucose (mg/dL) 195 H (75-99) mg/dL Calcium 7.0 L (8.4-10.2) mg/dL Total Protein 5.0 L (6.3-8.2) g/dL Albumin 2.1 L (3.5-5.0) g/dL 11/03/20 11/03/20 Range/Units 11:39 16:26 WBC (4.50-10.00) X 10*3/uL RBC (4.40-5.60) X 10*6/uL Hgb (13.0-17.0) g/dL Hct (39.6-50.0) % MCHC (32.0-37.0) g/dL Immature Gran # (0.00-0.04) X 10*3/uL Neutrophils # (1.80-7.70) X 10*3/uL Sodium (137-145) mmol/L Creatinine (0.66-1.25) mg/dL Glucose (74-99) mg/dL POC Glucose (mg/dL) 272 H 280 H (75-99) mg/dL Calcium (8.4-10.2) mg/dL Total Protein (6.3-8.2) g/dL Albumin (3.5-5.0) g/dL Microbiology - Last 24 Hours (Table) 11/02/20 17:14 Wound Culture - Preliminary Foot - Left 11/02/20 08:50 Blood Culture Gram Stain - Preliminary Blood 11/02/20 09:05 Blood Culture Gram Stain - Preliminary Blood 11/02/20 08:50 Blood Culture - Final Blood 11/02/20 09:05 Blood Culture - Final Blood 11/02/20 08:49 Gram Stain - Preliminary Foot - Left Wound Culture - Preliminary Group D Enterococcus Assessment and Plan Assessment: Necrotizing fasciitis left lower extremity Status post left above-knee amputation with wound VAC placement Plan: We will plan to change the wound VAC. We will likely go Friday for wound reexploration and possible closure on Friday.
--- NOTE | 2020-11-03 17:25 | PN ---
PROGRESS NOTE DATE OF SERVICE: 11/03/2020 REASON FOR FOLLOWUP: Left foot wound infection with necrotizing infection status post left puyyn-ozo-rsio amputation and bacteremia. INTERVAL HISTORY: The patient was taken to the OR yesterday for necrotizing infection to the left leg. The patient is status post left above-knee amputation. The patient has tolerated the procedure. The patient's pain is currently controlled with the left AKA stump. Patient denies having any chest pain, shortness of breath or cough. No abdominal pain or diarrhea. PHYSICAL EXAMINATION: Blood pressure 102/56, pulse of 94, temperature 98.4. He is 95% on room air. General description is a middle-aged male lying in bed in no distress. Respiratory system: Unlabored breathing, clear to auscultation anteriorly. Heart S1, S2. Regular rate and rhythm. Abdomen soft, no tenderness. Left AKA stump is currently dressed. LABS: Hemoglobin 7.1, white count 12.2, BUN of 18, creatinine 0.56. DIAGNOSTIC IMPRESSION AND PLAN: Patient with left foot wound infection with necrotizing infection involving the left lower extremity status post left jjmlz-iuu-acki amputation now with evidence of gram- positive bacteremia. The patient is covered with cefepime and vancomycin to continue while waiting for the culture to finalize treatment and monitor clinical course closely. MMODL / IJN: [id number] /
[2020-11-03 20:07] LABS: Glucose,Whole Blood 242 mg/dL (75-99)
[2020-11-03] MEDS: MELATONIN 3 MG TABLET PO SCH (20:39)
[2020-11-04] MEDS: CEFEPIME 2 GM in SODIUM CHLORIDE 0.9% 100 ML IVPB SCH ×2 (00:18→07:48)
[2020-11-04] MEDS: SODIUM CHLORIDE 0.9% 1,000 ML IV SCH ×3 (00:18→16:01)
[2020-11-04] MEDS: HYDROmorphone 0.5 MG/0.5 ML SYRINGE IVP PRN ×3 (00:26→07:59)
[2020-11-04] MEDS: CLINDAMYCIN 900 MG in DEXTROSE 5% IN WATER 50 ML IVPB SCH ×4 (04:51→10:52)
[2020-11-04] MEDS: VANCOMYCIN 1,500 MG in SODIUM CHLORIDE 0.9% 250 ML IVPB SCH ×3 (04:51→21:18)
--- NOTE | 2020-11-04 06:55 | PN ---
PROGRESS NOTE A 60-year-old white male, status post amputation. He has a wound VAC on his distal left stump. Remains on cefepime and vancomycin. Accu-Chek protocol. Sugars are in mid 200s. Risk factor modification is being done. Home medicines, which he does not take, he is on insulin at this time. Medications have been ordered. Waiting on A1c, lipid panel. Continue with pain control, wound VAC, broad-spectrum antibiotics. Home medications with have to be paid for by hospital or get insurance for the patient, Medicaid, as he has no insurance. MMODL / IJN: [id number] /
[2020-11-04 07:16] LABS: Glucose,Whole Blood 252 mg/dL (75-99)
[2020-11-04] MEDS: INSULIN ASPART (NovoLOG) 100 UNIT/ML VIAL SQ SCH ×4 (07:50→21:19)
[2020-11-04] MEDS: GABAPENTIN 100 MG CAP PO SCH ×3 (10:52→21:22)
[2020-11-04] MEDS ORDERED: VANCOMYCIN TROUGH DUE 1 EACH MISC MISCELLANE ONE (11:00)
[2020-11-04 12:11] LABS: Glucose,Whole Blood 267 mg/dL (75-99)
[2020-11-04 13:10] LABS: Basophils # (A) 0.02 X 10*3/uL (0.00-0.10); Basophils % (A) 0.2 %; Eosinophils # (A) 0.12 X 10*3/uL (0.04-0.35); Eosinophils % (A) 1.3 %; HCT 21.1 % (39.6-50.0); HGB 6.7 g/dL (13.0-17.0); Lymphocytes # (A) 1.06 X 10*3/uL (0.90-5.00); Lymphocytes % (A) 11.6 %; MCHC 31.8 g/dL (32.0-37.0); MCV 94.6 fL (80.0-97.0); Monocytes # (A) 0.58 X 10*3/uL (0.20-1.00); Monocytes % (A) 6.3 %; Neutrophils # (A) 7.32 X 10*3/uL (1.80-7.70); Neutrophils % (A) 79.9 %; Platelet Count 354 X 10*3/uL (140-440); RBC 2.23 X 10*6/uL (4.40-5.60); RDW 13.8 % (11.5-14.5); WBC 9.16 X 10*3/uL (4.50-10.00)
[2020-11-04 13:53] LABS: Hemoglobin A1C 15.3 % (4.0-6.0)
[2020-11-04 15:20] LABS: Chol/HDL Ratio 9.2; LDL Cholesterol,Calculated 46.4 mg/dL (0.0-131.0); VLDL Calculation 35.6 mg/dL (5.00-40.00)
[2020-11-04 16:42] LABS: Glucose,Whole Blood 266 mg/dL (75-99)
--- NOTE | 2020-11-04 18:13 | P.PN ---
Subjective Progress Note Date: 11/04/20 patient seen and examined. Overall feeling well. No complaints other than some mild pain in his left lower extremity. States she has not had significant bowel function since being in the hospital. No acute distress resting comfortably. Left lower extremity wound VAC intact. No erythema or purulent-appearing drainage. No fluctuance or crepitus Plan to take back to or tomorrow for debridement and possible closure and possible VAC placement. Patient is being transfused blood at this time due to anemia of 6.8. No active blood loss at this time Objective - Vital Signs Vital signs: Vital Signs Temp 98.2 F 11/04/20 13:45 Pulse 96 11/04/20 13:45 Resp 17 11/04/20 13:45 BP 114/70 11/04/20 13:45 Pulse Ox 96 11/04/20 13:45 Intake & Output 11/03/20 11/04/20 11/04/20 18:59 06:59 18:59 Intake Total 800 400 Output Total 600 Balance 800 -200 Weight 84 kg Intake: Intake, IV Titration 400 Amount Cefepime 2 gm In Sodium 100 Chloride 0.9% 100 ml @ 25 mls/hr IVPB Q8HR [facility] Rx# :[id number] Clindamycin 900 mg In 50 Dextrose 5% in Water 50 ml @ 50 mls/hr IVPB Q8H [facility] Rx#:[id number] Vancomycin 1,500 mg In 250 Sodium Chloride 0.9% 250 ml @ 125 mls/hr IVPB Q8H [facility] Rx#:[id number] Oral 800 Output: Urine 600 - Labs CBC & Chem 7: 11/04/20 06:38 11/03/20 07:19 Labs: Abnormal Lab Results - Last 24 Hours (Table) 11/03/20 11/04/20 11/04/20 Range/Units 20:06 06:38 06:38 RBC 2.23 L (4.40-5.60) X 10*6/uL Hgb 6.7 L* (13.0-17.0) g/dL Hct 21.1 L (39.6-50.0) % MCHC 31.8 L (32.0-37.0) g/dL Immature Gran # 0.06 H (0.00-0.04) X 10*3/uL POC Glucose (mg/dL) 242 H (75-99) mg/dL Hemoglobin A1c 15.3 H (4.0-6.0) % Triglycerides (0.0-149.0) mg/dL HDL Cholesterol (40.0-60.0) mg/dL Crossmatch 11/04/20 11/04/20 11/04/20 Range/Units 06:38 07:14 12:10 RBC (4.40-5.60) X 10*6/uL Hgb (13.0-17.0) g/dL Hct (39.6-50.0) % MCHC (32.0-37.0) g/dL Immature Gran # (0.00-0.04) X 10*3/uL POC Glucose (mg/dL) 252 H 267 H (75-99) mg/dL Hemoglobin A1c (4.0-6.0) % Triglycerides 178.0 H (0.0-149.0) mg/dL HDL Cholesterol 10.0 L (40.0-60.0) mg/dL Crossmatch 11/04/20 11/04/20 Range/Units 14:49 16:38 RBC (4.40-5.60) X 10*6/uL Hgb (13.0-17.0) g/dL Hct (39.6-50.0) % MCHC (32.0-37.0) g/dL Immature Gran # (0.00-0.04) X 10*3/uL POC Glucose (mg/dL) 266 H (75-99) mg/dL Hemoglobin A1c (4.0-6.0) % Triglycerides (0.0-149.0) mg/dL HDL Cholesterol (40.0-60.0) mg/dL Crossmatch See Detail Microbiology - Last 24 Hours (Table) 11/02/20 08:49 Gram Stain - Final Foot - Left Wound Culture - Final Enterococcus faecalis 11/02/20 08:50 Blood Culture Gram Stain - Preliminary Blood 11/02/20 17:14 Gram Stain - Preliminary Foot - Left Wound Culture - Preliminary 11/02/20 09:05 Blood Culture Gram Stain - Preliminary Blood Blood Culture - Preliminary Streptococcus species
[2020-11-04 20:52] LABS: Glucose,Whole Blood 259 mg/dL (75-99)
--- NOTE | 2020-11-04 20:53 | PN ---
PROGRESS NOTE DATE OF SERVICE: 11/04/2020 REASON FOR FOLLOWUP: Right foot Enterococcus infection with bacteremia. INTERVAL HISTORY: Patient is afebrile. The patient's pain to the left AKA stump is currently controlled. The patient denies having any chest pain, shortness of breath or cough. No abdominal pain, no diarrhea. PHYSICAL EXAMINATION: Blood pressure is 118/75 with a pulse of 92, temperature 98.4. He is 96% on room air. GENERAL DESCRIPTION: Is a middle-aged male lying in bed in no distress. RESPIRATORY SYSTEM: Unlabored breathing, clear to auscultation anteriorly. HEART: S1, S2. Regular rate and rhythm. ABDOMEN: Soft, no tenderness. LABS: Hemoglobin 6.1, white count 9.16. Vanc 19.2. Local culture with Enterococcus faecalis and Streptococcus species. DIAGNOSTIC IMPRESSION AND PLAN: Patient with left foot and leg negative ( ) infections. ( ) condition with ( ) cultures. Culture positive for Enterococcus faecalis. Blood culture positive for Streptococcus species. The patient is covered with vancomycin. Waiting for sensitivity to finalize and monitor clinical course closely. MMODL / IJN: [id number] /
[2020-11-04] MEDS: MELATONIN 3 MG TABLET PO SCH (21:20)
[2020-11-04 23:59] LABS: Basophils % (A) 0 %; Eosinophils # (A) 0.2 k/uL (0-0.7); Eosinophils % (A) 2 %; HCT 25.4 % (39.0-53.0); Hypochromasia Slight; Lymphocytes # (A) 1.1 k/uL (1.0-4.8); Lymphocytes % (A) 15 %; MCH 30.4 pg (25.0-35.0); MCV 95.1 fL (80.0-100.0); Mean Platelet Volume 7.7; Monocytes # (A) 0.4 k/uL (0-1.0); Monocytes % (A) 6 %; Neutrophils # (A) 5.5 k/uL (1.3-7.7); Neutrophils % (A) 75 %; Platelet Count 453 k/uL (150-450); Poikilocytosis Slight; RBC 2.67 m/uL (4.30-5.90); RDW 14.4 % (11.5-15.5); WBC 7.4 k/uL (3.8-10.6)
[2020-11-05 00:37] LABS: HGB 8.1 gm/dL (13.0-17.5)
[2020-11-05] MEDS: SODIUM CHLORIDE 0.9% 1,000 ML IV SCH ×4 (02:33→20:51)
[2020-11-05] MEDS: VANCOMYCIN 1,500 MG in SODIUM CHLORIDE 0.9% 250 ML IVPB SCH ×3 (04:17→20:50)
[2020-11-05 06:45] LABS: Glucose,Whole Blood 221 mg/dL (75-99)
[2020-11-05] MEDS ORDERED: MIDAZOLAM 2 MG/2 ML VIAL IV PRN (07:00)
[2020-11-05] MEDS: GABAPENTIN 100 MG CAP PO SCH ×3 (07:18→20:50)
[2020-11-05] MEDS: INSULIN ASPART (NovoLOG) 100 UNIT/ML VIAL SQ SCH ×4 (07:19→20:50)
--- NOTE | 2020-11-05 08:13 | PN ---
PROGRESS NOTE A 60-year-old white male on Neurontin, NovoLog, melatonin, vancomycin. He was having increasing pain in his leg. We will start Neurontin 100 mg t.i.d. for phantom pain. Hemoglobin 6.7. He is going to get 1 unit of blood. Cardiovascular: S1, S2. Lungs clear. GI soft. Hematology negative Homans. ASSESSMENT: Status post left leg amputation above knee with a wound VAC on the leg. He is on Accu-Chek protocol, vancomycin, Neurontin, Dilaudid. Continue with PT OT. Possible wound treatment. Replace his hemoglobin. Follow up in the morning. MMODL / IJN: [id number] /
[2020-11-05] MEDS ORDERED: DEXAMETHASONE SOD PHOSPHATE 4 MG/ML 1 ML VIAL IV ONE (08:23)
[2020-11-05] MEDS ORDERED: LIDOCAINE 1% (10MG/ML) FOR IV START INTRADERMA PRN (08:23)
[2020-11-05] MEDS ORDERED: ONDANSETRON 4 MG/2 ML VIAL IVP ONE (08:23)
[2020-11-05 10:13] LABS: Basophils # (A) 0.02 X 10*3/uL (0.00-0.10); Basophils % (A) 0.3 %; Eosinophils # (A) 0.17 X 10*3/uL (0.04-0.35); Eosinophils % (A) 2.2 %; HCT 25.7 % (39.6-50.0); HGB 8.3 g/dL (13.0-17.0); Lymphocytes # (A) 0.98 X 10*3/uL (0.90-5.00); Lymphocytes % (A) 12.8 %; MCH 29.6 pg (27.0-32.0); MCHC 32.3 g/dL (32.0-37.0); MCV 91.8 fL (80.0-97.0); Mean Platelet Volume 9.5 fL (9.5-12.2); Monocytes # (A) 0.49 X 10*3/uL (0.20-1.00); Monocytes % (A) 6.4 %; Neutrophils # (A) 5.96 X 10*3/uL (1.80-7.70); Neutrophils % (A) 77.5 %; Platelet Count 477 X 10*3/uL (140-440); RDW 14.6 % (11.5-14.5); WBC 7.68 X 10*3/uL (4.50-10.00)
[2020-11-05 10:49] LABS: African American GFR (CKD) 150.7 (60.0-200.0); Albumin 2.3 g/dL (3.80-4.90); Albumin/Globulin Ratio 0.82 (1.60-3.17); Globulin 2.8 g/dL (1.6-3.3); Potassium 4.3 mmol/L (3.5-5.5); Total Bilirubin 0.4 mg/dL (0.2-1.2); Total Protein 5.1 g/dL (6.2-8.2)
--- NOTE | 2020-11-05 12:00 | P.ANPRN ---
Procedure Note - Anesthesia - Nerve Block Performed Left Other (see comment) Single Time Out Performed: Yes (femoral) Date of Procedure: 11/05/20 Procedure Start Time: 11:32 Procedure Stop Time: 11:40 Location of Patient: Phase I Indication: Acute Post-Operative Pain, Requested by Surgeon Sedation Type: Awake Preparation: Sterile Prep, Sterile Dressing Position: Supine Catheter: None Needle Types: Facet Needle Gauge: 20 Ultrasound used to visualize needle placement: Yes Ultrasound used to observe medication spread: Yes Injectate: 0.5% Ropivacaine (see comment for volume) (15 ml + decadron 4 mg) Blood Aspirated: No Pain Paresthesia on Injection Noted: No Resistance on Injection: Normal Image Stored and Saved: Yes Events: Uneventful and Well Tolerated Popliteal Single Time Out Performed: Yes (sciatic block (did not allow 2 "other" block types)) Date of Procedure: 11/05/20 Procedure Start Time: 11:43 Procedure Stop Time: 11:51 Location of Patient: Phase I Indication: Acute Post-Operative Pain, Requested by Surgeon Sedation Type: Awake Preparation: Sterile Prep, Sterile Dressing Position: Right Lateral Catheter: None Needle Types: Pajunk Needle Gauge: 20 Ultrasound used to visualize needle placement: Yes Ultrasound used to observe medication spread: Yes Injectate: 0.5% Ropivacaine (see comment for volume) Blood Aspirated: No Pain Paresthesia on Injection Noted: No Resistance on Injection: Normal Image Stored and Saved: Yes Events: Uneventful and Well Tolerated
[2020-11-05] MEDS ORDERED: PROPOFOL 10 MG/ML 20 ML VIAL IV ONE (12:08)
[2020-11-05] MEDS ORDERED: LIDOCAINE 1% INJ 10MG/ML (20 ML MDV) ONE (12:08)
[2020-11-05] MEDS ORDERED: ROPIVACAINE 5 MG/ML 30 ML VIAL ONE (12:08)
[2020-11-05] MEDS ORDERED: DEXAMETHASONE SOD PHOSPHATE 4 MG/ML 1 ML VIAL ONE (12:08)
[2020-11-05] MEDS ORDERED: MIDAZOLAM 2 MG/2 ML VIAL ONE (12:08)
[2020-11-05] MEDS ORDERED: PHENYLEPHRINE-0.9% NACL SYG 1,000 MCG/10 ML SYRINGE ONE (12:08)
[2020-11-05] MEDS ORDERED: fentaNYL (PF) 50 MCG/ML 2 ML AMP ONE (12:08)
[2020-11-05] MEDS ORDERED: SODIUM CHLORIDE 0.9% 1,000 ML IV ONE (12:12)
--- NOTE | 2020-11-05 13:04 | P.OP ---
Date of Procedure: 11/05/20 Preoperative Diagnosis: #1: Status post left xyjlw-uwb-lnqv guillotine type amputation. #2: Open wound. Postoperative Diagnosis: Same. Procedure(s) Performed: Closure of guillotine left iiqbx-rpc-yhyt amputation wound. Implants: None. Anesthesia: regional Surgeon: Kelvin Najera Estimated Blood Loss (ml): 5 Urine output (ml): 0 Pathology: none sent Condition: stable Disposition: no change Indications for Procedure: Patient is a 60-year-old male who last had presented with a grossly infected diabetic foot wound with gas extending to his distal thigh area. He did undergo a left wtfws-ujo-wrpx amputation was left open for drainage with the aid of a wound VAC. Patient is now offered wound closure. Description of Procedure: Patient was brought the operating room and placed in supine position after having received regional anesthesia delivered by the department anesthesiology. He also received intravenously administered conscious sedation by the department of anesthesiology. The left lower extremity sterilely prepped and draped in usual manner after the wound VAC had been removed. The tissues appeared healthy without evidence of any necrotic tissue. The wound was irrigated. Was felt reasonable to close the wound over drain and as such fashion was reapproximated with 2-0 Vicryl suture after a drain was brought medial through the lateral aspect of the wound. Skin edges were reapproximated with skin bird. Proper dressings were applied. Patient tolerated procedure well and was taken to the recovery area in satisfactory and stable condition.
[2020-11-05 13:17] LABS: Glucose,Whole Blood 224 mg/dL (75-99)
[2020-11-05] MEDS: LACTATED RINGERS 1,000 ML IV SCH (13:33)
[2020-11-05 16:41] LABS: Glucose,Whole Blood 273 mg/dL (75-99)
[2020-11-05 20:31] LABS: Glucose,Whole Blood 349 mg/dL (75-99)
[2020-11-05] MEDS: ZOLPIDEM 5 MG TAB PO PRN (20:50)
--- NOTE | 2020-11-05 21:07 | PN ---
PROGRESS NOTE DATE OF SERVICE: 11/05/2020 REASON FOR FOLLOWUP: Left leg necrotizing infection and bacteremia. INTERVAL HISTORY: Patient is afebrile. The patient is breathing comfortably. The patient denies having any chest pain or shortness of breath or cough. No abdominal pain or any worsening pain to the left AKA stump. PHYSICAL EXAMINATION: Blood pressure 136/76, pulse of 90, temperature 98.9. he is 95% on 2L. GENERAL DESCRIPTION: Is a middle-aged male lying in bed in no distress. RESPIRATORY SYSTEM: Unlabored breathing, clear to auscultation anteriorly. HEART: S1, S2. Regular rate and rhythm. ABDOMEN: Soft, no tenderness. LABS: Hemoglobin is 8. White count 7.68, BUN of 10, creatinine 0.4. Blood culture not hemolytic strep with sensitivities pending. DIAGNOSTIC IMPRESSION AND PLAN: Patient with left leg necrotizing infection with streptococcal bacteremia, sensitivity still pending. Blood cultures will be repeated to document clearance of bacteremia. Antibiotic adjusted on the basis of the sensitivity report. Probably will need at least 2 weeks of antibiotics from his negative blood cultures and close outpatient followup. MMODL / IJN: [id number] /
--- NOTE | 2020-11-05 22:05 | P.PN ---
Progress Note - Text Progress Note Date: 11/05/20 Presenting complaint: Left leg stump pain Interval history: I'm rounding for Dr. Chicho Loo Patient admitted with left lower extremity gangrene. Left above-knee amputation on November 02. November 05: Patient underwent flap closure of the left leg stump today. Procedure laying in bed. Dressing in place. Pain control. No nausea vomiting. Did tolerate his meals. Review of systems: Was done for constitutional, cardiovascular, GI, pulmonary. relevant finding as above Active Medications Gabapentin (Gabapentin 100 Mg Cap) 100 mg PO TID [facility] Last Admin: 11/05/20 20:50 Dose: 100 mg Documented by: Hydromorphone HCl (Hydromorphone 0.5 Mg/0.5 Ml Syringe) 0.5 mg IVP Q3HR PRN PRN Reason: Moderate Pain Last Admin: 11/04/20 07:59 Dose: 0.5 mg Documented by: Hydromorphone HCl (Hydromorphone 0.5 Mg/0.5 Ml Syringe) 0.5 mg IVP Q5M PRN PRN Reason: Pain Control Stop: 11/06/20 23:00 Sodium Chloride (Saline 0.9%) 1,000 mls @ 130 mls/hr IV .Q7H42M [facility] Last Admin: 11/05/20 20:51 Dose: 130 mls/hr Documented by: Vancomycin HCl 1,500 mg/ (Sodium Chloride) 250 mls @ 125 mls/hr IVPB Q8H [facility] Last Admin: 11/05/20 20:50 Dose: 125 mls/hr Documented by: Lactated Ringer's (Lactated Ringers) 1,000 mls @ 20 mls/hr IV .Q24H [facility] Last Admin: 11/05/20 13:33 Dose: Not Given Documented by: Insulin Aspart (Insulin Aspart (Novolog) 100 Unit/Ml Vial) 0 unit SQ ACHS [facility]; Protocol Last Admin: 11/05/20 20:50 Dose: 6 unit Documented by: Lidocaine HCl (Lidocaine 1% (10mg/Ml) For Iv Start) 0.1 ml INTRADERMA PER PROTOCOL PRN PRN Reason: IV Start Metoclopramide HCl (Metoclopramide 5 Mg/Ml 2 Ml Vial) 10 mg IVP ONCE PRN PRN Reason: Nausea And Vomiting Stop: 11/06/20 23:00 Midazolam HCl (Midazolam 2 Mg/2 Ml Vial) 2 mg IV ONCE PRN PRN Reason: Anxiety Stop: 11/05/20 23:00 Naloxone HCl (Naloxone 0.4 Mg/Ml 1 Ml Vial) 0.2 mg IV Q2M PRN PRN Reason: Opioid Reversal Ondansetron HCl (Ondansetron 4 Mg/2 Ml Vial) 4 mg IVP Q8HR PRN PRN Reason: Nausea And Vomiting Zolpidem Tartrate (Zolpidem 5 Mg Tab) 5 mg PO HS PRN PRN Reason: Insomnia Last Admin: 11/05/20 20:50 Dose: 5 mg Documented by: On examination: VITAL SIGNS: 98.5, 87, 16, 119/75, 96% room air GENERAL APPEARANCE: Laying in bed, comfortable HEENT: Normal external appearance of nose and ear. Oral cavity normal EYES: Pupils equal. Conjunctiva normal. NECK: JVD not raised. Mass not palpable. RESPIRATORY: Respiratory effort normal. Lungs clear to auscultation. CARDIOVASCULAR: First and second sounds normal. No edema. ABDOMEN: Soft. Liver and spleen not palpable. No tenderness. No mass palpable. PSYCHIATRY: Alert and oriented x3. Mood and affect normal. EXTREMITY: Left above-knee amputation with a dressing on the stump Investigations: White count 7.6 hemoglobin 8.3 platelets 477 potassium 4.3 creatinine 0.4 Accu-Cheks 221, 224, 273, 349 Blood cultures positive for nonhemolytic strep Assessment and plan: -Left lower extremity foot gangrene with left above-knee amputation. On November 02 Left leg stump flap closure on November 05 -Diabetes mellitus type 2, uncontrolled with hyperglycemia Diabetic counselor. Add metformin -Chronic nicotine dependence, cigarette smoker Nicotine patch -Left leg necrotizing infection growing streptococcal IV vancomycin. Follow with ID Follow Accu-Cheks. Start the patient on metformin. educator senior clinical.
[2020-11-06] MEDS: VANCOMYCIN 1,500 MG in SODIUM CHLORIDE 0.9% 250 ML IVPB SCH ×3 (03:59→19:52)
[2020-11-06] MEDS: SODIUM CHLORIDE 0.9% 1,000 ML IV SCH ×3 (06:29→19:46)
[2020-11-06] MEDS ORDERED: HYDROmorphone 0.5 MG/0.5 ML SYRINGE IVP PRN (07:00)
[2020-11-06] MEDS ORDERED: METOCLOPRAMIDE 5 MG/ML 2 ML VIAL IVP PRN (07:00)
[2020-11-06 07:07] LABS: Glucose,Whole Blood 296 mg/dL (75-99)
[2020-11-06 07:34] LABS: African American GFR (CKD) >90 (>60 ml/min/1.73 sqM); Non-African American GFR(CKD) >90 (>60 ml/min/1.73 sqM)
[2020-11-06] MEDS: metFORMIN 500 MG TAB PO SCH ×2 (07:45→17:09)
[2020-11-06] MEDS: GABAPENTIN 100 MG CAP PO SCH (07:45)
[2020-11-06] MEDS: NICOTINE 21MG/24HR PATCH TRANSDERM SCH ×2 (07:46→07:49)
[2020-11-06] MEDS: INSULIN ASPART (NovoLOG) 100 UNIT/ML VIAL SQ SCH ×4 (07:46→21:31)
[2020-11-06] MEDS: HYDROmorphone 0.5 MG/0.5 ML SYRINGE IVP PRN ×3 (07:46→17:11)
[2020-11-06] MEDS: LACTATED RINGERS 1,000 ML IV SCH (07:46)
[2020-11-06] MEDS: HYDROcodone/APAP 5-325MG 1 EACH TAB PO PRN ×2 (09:34→16:07)
--- NOTE | 2020-11-06 09:42 | P.PN ---
Subjective Progress Note Date: 11/06/20 Principal diagnosis: Left foot wound, necrotizing fasciitis Patient seen and examined lying in bed. He underwent closure yesterday of his oiqbr-fju-hmmv amputation. He is with complaints of left incision pain. He has been afebrile. No acute changes through the night. His dressing is clean dry and intact. Objective - Vital Signs Vital signs: Vital Signs Temp 98.1 F 11/06/20 08:00 Pulse 79 11/06/20 08:00 Resp 18 11/06/20 08:00 BP 145/74 11/06/20 08:00 Pulse Ox 97 11/06/20 08:00 Intake & Output 11/05/20 11/06/20 11/06/20 18:59 06:59 18:59 Intake Total 400 Output Total 801 Balance -401 Intake: IV 150 Intake, IV Titration 250 Amount Vancomycin 1,500 mg In 250 Sodium Chloride 0.9% 250 ml @ 125 mls/hr IVPB Q8H [facility] Rx#:[id number] Output: Urine 800 Estimated Blood Loss 1 Other: # Voids 4 - Exam General appearance: The patient is alert, oriented, in no acute distress. HET: Head is normocephalic and atraumatic. Neck: Supple without lymphadenopathy. Trachea midline. Heart: S1 S2. Regular rate and rhythm. Lungs: Clear to auscultation. Abdomen: Soft, nontender, nondistended. Extremities: Left oqwwl-zne-jgbp amputation, site with bird intact with Carlos Alberto drain. No surrounding erythema, skin pink, dry and warm to touch. Neurological: No focal deficits. Alert and oriented 3. - Labs CBC & Chem 7: 11/05/20 06:11 11/06/20 06:20 Labs: Abnormal Lab Results - Last 24 Hours (Table) 11/05/20 11/05/20 11/05/20 Range/Units 06:11 06:11 13:15 RBC 2.80 L (4.40-5.60) X 10*6/uL Hgb 8.3 L (13.0-17.0) g/dL Hct 25.7 L (39.6-50.0) % RDW 14.6 H (11.5-14.5) % Plt Count 477 H (140-440) X 10*3/uL Immature Gran # 0.06 H (0.00-0.04) X 10*3/uL Sodium 132 L (135-145) mmol/L Creatinine 0.4 L (0.6-1.5) mg/dL BUN/Creatinine Ratio 25.00 H (12.00-20.00) Ratio Glucose 209 H (70-110) mg/dL POC Glucose (mg/dL) 224 H (75-99) mg/dL Calcium 7.0 L (8.7-10.3) mg/dL AST 41 H (14-35) U/L Total Protein 5.1 L (6.2-8.2) g/dL Albumin 2.30 L (3.80-4.90) g/dL Albumin/Globulin Ratio 0.82 L (1.60-3.17) g/dL 11/05/20 11/05/20 11/06/20 Range/Units 16:36 20:28 06:20 RBC (4.40-5.60) X 10*6/uL Hgb (13.0-17.0) g/dL Hct (39.6-50.0) % RDW (11.5-14.5) % Plt Count (140-440) X 10*3/uL Immature Gran # (0.00-0.04) X 10*3/uL Sodium (135-145) mmol/L Creatinine 0.39 L (0.6-1.5) mg/dL BUN/Creatinine Ratio (12.00-20.00) Ratio Glucose (70-110) mg/dL POC Glucose (mg/dL) 273 H 349 H (75-99) mg/dL Calcium (8.7-10.3) mg/dL AST (14-35) U/L Total Protein (6.2-8.2) g/dL Albumin (3.80-4.90) g/dL Albumin/Globulin Ratio (1.60-3.17) g/dL 11/06/20 Range/Units 07:05 RBC (4.40-5.60) X 10*6/uL Hgb (13.0-17.0) g/dL Hct (39.6-50.0) % RDW (11.5-14.5) % Plt Count (140-440) X 10*3/uL Immature Gran # (0.00-0.04) X 10*3/uL Sodium (135-145) mmol/L Creatinine (0.6-1.5) mg/dL BUN/Creatinine Ratio (12.00-20.00) Ratio Glucose (70-110) mg/dL POC Glucose (mg/dL) 296 H (75-99) mg/dL Calcium (8.7-10.3) mg/dL AST (14-35) U/L Total Protein (6.2-8.2) g/dL Albumin (3.80-4.90) g/dL Albumin/Globulin Ratio (1.60-3.17) g/dL Microbiology - Last 24 Hours (Table) 11/02/20 08:50 Blood Culture Gram Stain - Preliminary Blood Blood Culture - Final Non Hemolytic Strep 11/02/20 09:05 Blood Culture Gram Stain - Final Blood Blood Culture - Final Non Hemolytic Strep 11/02/20 17:14 Gram Stain - Final Foot - Left Wound Culture - Final Assessment and Plan Assessment: 1. Postop day #4 for left htumw-mcl-wyzz amputation 2. Left foot diabetic wound with possible necrotizing fasciitis 3. Diabetes mellitus 4. Current smoker Plan: 1. Continue IV antibiotics per recommendation of infectious disease 2. Consult physical therapy 3. Social work on consult for financial assistance 4. Daily dressing change 5. Will order stump wire fence builder and rigid dressing with prosthetic company Thank you for this consultation and allowing us take part in the plan of care of your patient during his hospital stay The impression and plan of care has been dictated as directed. Dr. Najera I performed a history and examination of this patient, discussed the same with the dictator. I agree with the dictator's note ,documented as a scribe. Any additional findings or plans will be noted.
[2020-11-06 11:35] LABS: Glucose,Whole Blood 288 mg/dL (75-99)
[2020-11-06] MEDS: GABAPENTIN 300 MG CAP PO SCH ×2 (16:07→21:30)
[2020-11-06 16:33] LABS: Glucose,Whole Blood 243 mg/dL (75-99)
--- NOTE | 2020-11-06 20:17 | PN ---
PROGRESS NOTE DATE OF SERVICE: 11/06/2020 REASON FOR FOLLOWUP: Left leg necrotizing infection and bacteremia. INTERVAL HISTORY: The patient is afebrile. The patient is breathing comfortably. Patient denies having any chest pain, shortness of breath or cough. No nausea, vomiting, abdominal pain, or any worsening pain to the left AKA stump. PHYSICAL EXAMINATION: Blood pressure 122/69, pulse of 99, temperature 98.4. He is 96% on room air. General description is a middle-aged male lying in bed in no distress. Respiratory system: Unlabored breathing, clear to auscultation anteriorly. Heart S1, S2. Regular rate and rhythm. Abdomen soft, no tenderness. Left AKA stump is currently dressed. No obvious drainage on the dressing. LABS: Creatinine 0.39. Blood culture nonhemolytic strep, sensitivity still pending. DIAGNOSTIC IMPRESSION AND PLAN: Patient with left neck necrotizing infection status post left cchkg-iuw-ovvj amputation with infected part removed. The patient will not need antibiotic therapy, however, he was bacteremic and will consider at least 2 weeks of ( ) blood cultures. Still waiting for the sensitivity. Continue with vancomycin. MMODL / IJN: [id number] /
[2020-11-06 20:56] LABS: Glucose,Whole Blood 248 mg/dL (75-99)
[2020-11-06] MEDS: INSULIN DETEMIR (LEVEMIR) 100 UNIT/ML SYR SQ SCH (21:30)
[2020-11-07] MEDS: VANCOMYCIN 1,500 MG in SODIUM CHLORIDE 0.9% 250 ML IVPB SCH ×3 (03:16→19:41)
[2020-11-07] MEDS: SODIUM CHLORIDE 0.9% 1,000 ML IV SCH ×3 (05:41→21:25)
--- NOTE | 2020-11-07 06:16 | PN ---
PROGRESS NOTE A 60-year-old white male status post left knee amputation and wound VAC reversal. Leg was sewn back up. A1c is 15.7. Started him on Levemir 25 units subcu q.h.s. and Accu- Chek protocol. Cardiovascular S1-S2. Lungs clear. GI soft. Hematology negative Homans. Psych fair mood and affect. ASSESSMENT: 1. Uncontrolled diabetes mellitus, insulin-dependent, status post amputation. 2. Nicotine addiction. Prognosis extremely guarded. Diabetes education will be done. Continue pain control. Increase Neurontin to 300 t.i.d.. MMODL / IJN: [id number] /
[2020-11-07 06:45] LABS: Glucose,Whole Blood 80 mg/dL (75-99)
[2020-11-07] MEDS: INSULIN ASPART (NovoLOG) 100 UNIT/ML VIAL SQ SCH ×4 (07:22→21:25)
[2020-11-07] MEDS: LACTATED RINGERS 1,000 ML IV SCH (07:23)
[2020-11-07] MEDS: metFORMIN 500 MG TAB PO SCH ×2 (07:35→16:51)
[2020-11-07] MEDS: GABAPENTIN 300 MG CAP PO SCH ×3 (07:36→21:25)
[2020-11-07] MEDS: HYDROcodone/APAP 5-325MG 1 EACH TAB PO PRN ×3 (07:36→19:42)
[2020-11-07] MEDS: NICOTINE 21MG/24HR PATCH TRANSDERM SCH (07:36)
[2020-11-07 07:51] LABS: Basophils % (A) 0 %; Eosinophils # (A) 0.3 k/uL (0-0.7); Eosinophils % (A) 3 %; HCT 30.6 % (39.0-53.0); Hypochromasia Slight; Lymphocytes # (A) 1.4 k/uL (1.0-4.8); Lymphocytes % (A) 17 %; MCH 30.6 pg (25.0-35.0); MCHC 31.9 g/dL (31.0-37.0); Mean Platelet Volume 7.2; Monocytes # (A) 0.4 k/uL (0-1.0); Monocytes % (A) 4 %; Neutrophils # (A) 6.1 k/uL (1.3-7.7); Neutrophils % (A) 74 %; Platelet Count 636 k/uL (150-450); RBC 3.18 m/uL (4.30-5.90); RDW 14.5 % (11.5-15.5); WBC 8.3 k/uL (3.8-10.6)
[2020-11-07 08:20] LABS: ALT 34 U/L (4-49); AST 32 U/L (17-59); African American GFR (CKD) >90 (>60 ml/min/1.73 sqM); Albumin 2.3 g/dL (3.5-5.0); Albumin/Globulin Ratio 0.7; Alkaline Phosphatase 74 U/L (38-126); Anion Gap 3 mmol/L; Blood Urea Nitrogen 8 mg/dL (9-20); Calcium 7.9 mg/dL (8.4-10.2); Carbon Dioxide 28 mmol/L (22-30); Chloride 105 mmol/L (98-107); Globulin 3.1 g/dL; Glucose 93 mg/dL (74-99); HGB 9.7 gm/dL (13.0-17.5); Non-African American GFR(CKD) >90 (>60 ml/min/1.73 sqM); Sodium 136 mmol/L (137-145); Total Bilirubin 0.1 mg/dL (0.2-1.3); Total Protein 5.4 g/dL (6.3-8.2)
[2020-11-07 10:55] LABS: Glucose,Whole Blood 137 mg/dL (75-99)
--- NOTE | 2020-11-07 11:37 | CDI ---
Documentation Clarification Form Date: 11/07/2020 11:34:35 AM From: Monica Rueda RN, CCDS Admit Date: 11/02/2020 10:23:00 AM Patient Name: Hardik Hu Visit Number: [id number] ATTENTION: The Clinical Documentation Specialists (CDI) and [facility] Coding Staff appreciate your assistance in clarifying documentation. Please respond to the clarification below the line at the bottom and electronically sign. The CDI & [facility] Coding staff will review the response and follow-up if needed. Please note: Queries are made part of the Legal Health Record. If you have any questions, please contact the author of this message via ITS. Dr. Chicho Loo The patient presented with the following clinical indicators. Additional clarification regarding the etiology/cause of the clinical indicators is requested. 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, Gas gangrene left lower extremity extending from the foot to the mid-thigh level 11/02 Procedure Note: "The patient met criteria for sepsis." 11/02 ID Consult: "patient presented to hospital with sepsis in the sputum, fever tachycardia elevated white count sources left diabetic foot infection with a wound to the left foot lateral border and concern for necrotizing infection involving the foot and the leg will be recorded for the gram-positive as well as gram-negative in this patient with underlying diabetes uncontrolled." Treatment: ID Consult: see above Antibiotics: 11/02-11/04 Cefepime 2gm IVPB q 8 hrs. 11/02-11/04 Clindamycin 600 mg IVPB OT followed by 900 mg IVPB q 8 hrs. 11/02 Zosyn 3.375gm IVPB OT 11/02- Current: IV Vanco PTD IV Bolus: 11/02 2L 0.9% NS IVF Bolus followed by 130 cc/hr. 11/02 Procedure: "Left ylbdl-isg-mqfu amputation. Application of negative pressure wound VAC therapy greater than 50 cm" In your professional opinion, please clarify if these findings signify one of the following conditions: [ ] Sepsis due to enterococcus faecalis POA [ ] Sepsis, Not POA [ ] Sepsis ruled out [ ] Other, please specify [ ] Unable to determine SIRS Criteria: 2 or more of the following may indicate SIRS -Temperature < 96.8F (36C) or > 101.0F (38.3C) -Heart Rate > 90 bpm -Respiratory Rate > 20 breaths/min or PaCO2 < 32 mmHg -White Blood Cell Count > 12,000 or < 4,000 cells/mm3 or > 10% bands (Template Last Reviewed: May 2020) MTDD
--- NOTE | 2020-11-07 11:42 | P.PN ---
Subjective Progress Note Date: 11/07/20 Principal diagnosis: Left foot wound, necrotizing fasciitis Patient seen and examined lying in bed. No acute changes through the night. He is status postop day #5 for left zcpjx-izc-nhfx amputation with closure on Friday. He remains on vancomycin. Infectious disease does not believe he will need outpatient long-term antibiotics. He states his pain is much better controlled. He has been up into the bedside chair with assistance from physical therapy. Objective - Vital Signs Vital signs: Vital Signs Temp 98.4 F 11/07/20 07:28 Pulse 92 11/07/20 07:28 Resp 16 11/07/20 07:28 BP 150/78 11/07/20 07:28 Pulse Ox 96 11/07/20 07:28 Intake & Output 11/06/20 11/07/20 11/07/20 18:59 06:59 18:59 Output Total 450 Balance -450 Output: Urine 450 Other: Voiding Method Urinal Urinal # Voids 3 2 - Exam General appearance: The patient is alert, oriented, in no acute distress. HET: Head is normocephalic and atraumatic. Neck: Supple without lymphadenopathy. Trachea midline. Heart: S1 S2. Regular rate and rhythm. Lungs: Clear to auscultation. Abdomen: Soft, nontender, nondistended. Extremities: Left lonmy-cno-iokv amputation, dressing clean dry and intact. Neurological: No focal deficits. Alert and oriented 3. - Labs CBC & Chem 7: 11/07/20 07:08 11/07/20 07:08 Labs: Abnormal Lab Results - Last 24 Hours (Table) 11/06/20 11/06/20 11/07/20 Range/Units 16:32 20:55 07:08 RBC (4.30-5.90) m/uL Hgb (13.0-17.5) gm/dL Hct (39.0-53.0) % Plt Count (150-450) k/uL Sodium 136 L (137-145) mmol/L BUN 8 L (9-20) mg/dL Creatinine 0.47 L (0.66-1.25) mg/dL POC Glucose (mg/dL) 243 H 248 H (75-99) mg/dL Calcium 7.9 L (8.4-10.2) mg/dL Total Bilirubin 0.1 L (0.2-1.3) mg/dL Total Protein 5.4 L (6.3-8.2) g/dL Albumin 2.3 L (3.5-5.0) g/dL 11/07/20 11/07/20 Range/Units 07:08 10:54 RBC 3.18 L (4.30-5.90) m/uL Hgb 9.7 L D (13.0-17.5) gm/dL Hct 30.6 L (39.0-53.0) % Plt Count 636 H (150-450) k/uL Sodium (137-145) mmol/L BUN (9-20) mg/dL Creatinine (0.66-1.25) mg/dL POC Glucose (mg/dL) 137 H (75-99) mg/dL Calcium (8.4-10.2) mg/dL Total Bilirubin (0.2-1.3) mg/dL Total Protein (6.3-8.2) g/dL Albumin (3.5-5.0) g/dL Microbiology - Last 24 Hours (Table) 11/05/20 19:29 Blood Culture - Preliminary Blood No Growth after 24 hours Assessment and Plan Assessment: 1. Postop day #4 for left alwrq-nyr-jjjd amputation 2. Left foot diabetic wound with possible necrotizing fasciitis 3. Diabetes mellitus 4. Current smoker Plan: 1. Continue IV antibiotics per recommendation of infectious disease 2. Consult physical therapy 3. Social work on consult for financial assistance 4. Daily dressing change 5. Will order stump section leader and rigid dressing with [employer] Lemus Thank you for this consultation and allowing us take part in the plan of care of your patient during his hospital stay The impression and plan of care has been dictated as directed. Dr. Newsome I performed a history and examination of this patient, discussed the same with the dictator. I agree with the dictator's note ,documented as a scribe. Any additional findings or plans will be noted.
--- NOTE | 2020-11-07 11:46 | CDI ---
Documentation Clarification Form Date: 11/07/2020 11:38:29 AM From: Monica Rueda RN, CCDS Admit Date: 11/02/2020 10:23:00 AM Patient Name: Hardik Hu Visit Number: [id number] ATTENTION: The Clinical Documentation Specialists (CDI) and [facility] Coding Staff appreciate your assistance in clarifying documentation. Please respond to the clarification below the line at the bottom and electronically sign. The CDI & [facility] Coding staff will review the response and follow-up if needed. Please note: Queries are made part of the Legal Health Record. If you have any questions, please contact the author of this message via ITS. Dr. Chicho Loo Unspecified anemia is documented in your 11/04 progress note. Additional specificity regarding the type & acuity of anemia is requested. History/Risk Factors: DM2 uncontrolled with hyperglycemia, smoker, Left foot diabetic wound with gas gangrene and necrotizing fascitis Clinical indicators: 11/08 Attending Progress Note: "Patient is being transfused blood at this time due to anemia of 6.8." 11/02-11/07 Hemoglobin: 9.8/7.2/6.7/8.1/8.3/9.7 11/02-11/07 Hematocrit: 31.9/22.6/21.1/25.4/25.7/30.6 11/02 Procedure: Left ppjiv-oiw-dvhe amputation. EBL 100 cc" Treatment: 11/04 1826 1 unit PRBC's transfused 11/02 2L 0.9% NS IVF Bolus Please clarify the type and acuity of anemia and POA status: [ ] Acute blood loss anemia [ ] Acute on chronic blood loss anemia [ ] Chronic blood loss anemia [ ] Unable to determine [ ] Other, please specify (Template Last Revised: May 2020) MTDD
--- NOTE | 2020-11-07 14:07 | PN ---
PROGRESS NOTE ADDENDUM: Sepsis secondary to Enterococcus faecalis POA, sepsis ruled in. Necrotizing fasciitis. Has severe anemia secondary to acute blood loss anemia secondary to below-knee amputation. MMODL / IJN: [id number] /
--- NOTE | 2020-11-07 14:07 | PN ---
PROGRESS NOTE ADDENDUM: Sepsis ruled in. MMODL / IJN: [id number] /
[2020-11-07 16:39] LABS: Glucose,Whole Blood 220 mg/dL (75-99)
[2020-11-07 20:40] LABS: Glucose,Whole Blood 263 mg/dL (75-99)
[2020-11-07] MEDS: INSULIN DETEMIR (LEVEMIR) 100 UNIT/ML SYR SQ SCH (21:24)
[2020-11-07] MEDS: metroNIDAZOLE 500 MG TAB PO SCH (22:19)
[2020-11-08] MEDS ORDERED: VANCOMYCIN TROUGH DUE 1 EACH MISC MISCELLANE ONE (03:00)
--- NOTE | 2020-11-08 05:05 | PN ---
PROGRESS NOTE His neuropathy his phantom pain is much better with Neurontin 300 mg t.i.d. He has had wound VAC removed and re-established wound care. He has a lot of purulent drainage coming out of the wounds. Remain on broad-spectrum antibiotics. Wound care. Cardiovascular S1-S2. Lungs clear. GI soft. Hematology negative Homans. Psych: Fair mood and affect. ASSESSMENT AND PLAN: 1. Left diabetic foot ulcer amputation. 2. Pseudomonas gangrene. 3. Necrotizing fascitis. 4. Uncontrolled diabetes mellitus. Hemoglobin A1c 15.2. Insulin will be started long- acting as well as short-acting. 5. Continue with broad-spectrum antibiotics. 6. Wound care. 7. Possible rehab placement. MMODL / IJN: [id number] /
--- NOTE | 2020-11-08 05:05 | PN ---
PROGRESS NOTE DATE OF SERVICE: 11/07/2020. REASON FOR FOLLOWUP: Left leg infection and bacteremia. INTERVAL HISTORY: The patient is afebrile. The patient is breathing comfortably. The patient denies having any chest pain, shortness of breath or cough. No abdominal pain or diarrhea. PHYSICAL EXAMINATION: Blood pressure 134/70 with a pulse of 69, temperature 98.6. He is 98% on room air. General description is a middle-aged male lying in bed in no distress. Respiratory system: Unlabored breathing, clear to auscultation anteriorly. Heart S1, S2. Regular rate and rhythm. Left AK stump looks clean nursing staff. LABS: Hemoglobin is 9.7, white count 8.2, BUN of 8, creatinine 0.47. Blood culture repeat has been negative. Blood cultures also showing anaerobic Gram-negative. DIAGNOSTIC IMPRESSION AND PLAN: Patient with left leg necrotizing infection status post left above-knee amputation. The patient did have a streptococcal bacteremia finalized now showing anaerobes. We will add oral Flagyl to his current medical regime. Continue supportive care. MMODL / IJN: [id number] /
[2020-11-08 06:50] LABS: Glucose,Whole Blood 78 mg/dL (75-99)
[2020-11-08] MEDS: VANCOMYCIN 1,500 MG in SODIUM CHLORIDE 0.9% 250 ML IVPB SCH ×3 (07:13→20:32)
[2020-11-08] MEDS: SODIUM CHLORIDE 0.9% 1,000 ML IV SCH ×3 (07:13→21:41)
[2020-11-08] MEDS: INSULIN ASPART (NovoLOG) 100 UNIT/ML VIAL SQ SCH ×4 (07:14→21:27)
[2020-11-08] MEDS: metroNIDAZOLE 500 MG TAB PO SCH ×3 (07:45→21:28)
[2020-11-08] MEDS: metFORMIN 500 MG TAB PO SCH ×2 (07:45→17:22)
[2020-11-08] MEDS: HYDROcodone/APAP 5-325MG 1 EACH TAB PO PRN ×3 (07:45→21:28)
[2020-11-08] MEDS: NICOTINE 21MG/24HR PATCH TRANSDERM SCH (07:46)
[2020-11-08] MEDS: LACTATED RINGERS 1,000 ML IV SCH (07:46)
[2020-11-08] MEDS: GABAPENTIN 300 MG CAP PO SCH ×3 (07:46→21:28)
[2020-11-08 11:36] LABS: Glucose,Whole Blood 207 mg/dL (75-99)
--- NOTE | 2020-11-08 15:02 | P.PN ---
Subjective Progress Note Date: 11/08/20 Principal diagnosis: Left foot wound, necrotizing fasciitis Patient seen and examined sitting up in bedside chair. No acute changes through the night. He is status postop day #6 for left pdvuj-owt-snla amputation with closure on Friday. He remains on vancomycin. Infectious disease does not believe he will need outpatient long-term antibiotics. He states his pain is controlled. Occult therapy has been working with the patient. Nursing changed dressing states only minimal to small amount of drainage from [place] drain. Objective - Vital Signs Vital signs: Vital Signs Temp 98.3 F 11/08/20 13:31 Pulse 87 11/08/20 13:31 Resp 18 11/08/20 13:31 BP 150/83 11/08/20 13:31 Pulse Ox 98 11/08/20 13:31 Intake & Output 11/07/20 11/08/20 11/08/20 18:59 06:59 18:59 Output Total 950 2800 850 Balance -950 -2800 -850 Output: Urine 950 2800 850 Other: Voiding Method Urinal Urinal Urinal # Voids 7 3 1 - Exam General appearance: The patient is alert, oriented, in no acute distress. HET: Head is normocephalic and atraumatic. Neck: Supple without lymphadenopathy. Trachea midline. Heart: S1 S2. Regular rate and rhythm. Lungs: Clear to auscultation. Abdomen: Soft, nontender, nondistended. Extremities: Left rhuvi-qlg-inzs amputation, dressing clean dry and intact. Neurological: No focal deficits. Alert and oriented 3. - Labs CBC & Chem 7: 11/07/20 07:08 11/07/20 07:08 Labs: Abnormal Lab Results - Last 24 Hours (Table) 11/07/20 11/07/20 11/08/20 Range/Units 16:38 20:38 11:36 POC Glucose (mg/dL) 220 H 263 H 207 H (75-99) mg/dL Microbiology - Last 24 Hours (Table) 11/05/20 19:29 Blood Culture - Preliminary Blood No Growth after 48 hours 11/02/20 08:50 Blood Culture Gram Stain - Preliminary Blood Blood Culture - Preliminary Non Hemolytic Strep Anaerobic Gm Negative Bacilli Assessment and Plan Assessment: 1. Postop day #4 for left rqsqe-tam-jhxp amputation 2. Left foot diabetic wound with possible necrotizing fasciitis 3. Diabetes mellitus 4. Current smoker Plan: 1. Continue IV antibiotics per recommendation of infectious disease 2. Continue physical therapy 3. Social work on consult for financial assistance 4. Daily dressing change, remove Carlos Alberto drain before discharge 5. Stump ecg technician and rigid dressing ordered Patient may be discharged from a vascular surgical standpoint. Recommend ECF for rehab. Thank you for this consultation and allowing us take part in the plan of care of your patient during his hospital stay The impression and plan of care has been dictated as directed. Dr. Baptiste I performed a history and examination of this patient, discussed the same with the dictator. I agree with the dictator's note ,documented as a scribe. Any a dditional findings or plans will be noted.
[2020-11-08 16:21] LABS: Glucose,Whole Blood 171 mg/dL (75-99)
--- NOTE | 2020-11-08 18:37 | PN ---
PROGRESS NOTE DATE OF SERVICE: 11/08/2020 REASON FOR FOLLOWUP: Left leg necrotizing infection and bacteremia. INTERVAL HISTORY: The patient is afebrile. The patient is breathing comfortably. Patient denies having any chest pain or shortness of breath or cough. No abdominal pain. Overall pain and discomfort to the left AKA stump is currently controlled. PHYSICAL EXAMINATION: Blood pressure 150/83 with a pulse of 80, temperature 98.3. He is 98% on room air. General description is a middle-aged male lying in bed in no distress. Respiratory system: Unlabored breathing, clear to auscultation anteriorly. Heart S1, S2. Regular rate and rhythm. Abdomen: Soft, no tenderness. LABS: Blood culture repeat has been negative. ID on the morning of ( ) could not be done by the [facility] lab. DIAGNOSTIC IMPRESSION AND PLAN: Patient with left leg necrotizing infection with secondary bacteremia. The patient is status post left potss-evt-vnaq amputation. Did have positive blood culture, repeat has been negative. Plan is for 2 weeks of antibiotics from his negative blood cultures. Continue supportive care. MMODL / IJN: [id number] /
[2020-11-08 21:01] LABS: Glucose,Whole Blood 237 mg/dL (75-99)
[2020-11-08] MEDS: INSULIN DETEMIR (LEVEMIR) 100 UNIT/ML SYR SQ SCH (21:27)
[2020-11-09] MEDS: SODIUM CHLORIDE 0.9% 1,000 ML IV SCH ×3 (03:27→17:08)
[2020-11-09] MEDS: VANCOMYCIN 1,500 MG in SODIUM CHLORIDE 0.9% 250 ML IVPB SCH ×3 (03:27→20:35)
--- NOTE | 2020-11-09 06:06 | P.CONS ---
History of Present Illness - Chief Complaint Walking difficulty, left AKA - History of Present Illness I had the opportunity to see patient for inpatient rehab consultation with regard to walking difficulty. He was admitted to [facility] November 02 with left foot infection. A foot x-ray and lower extremity CT consistent with osteomyelitis fifth metatarsal. Seen by Dr. Granados for diabetic foot infection treatment. Seen by Dr. Gruber who did perform left AKA in fact required 2 procedures. Started therapies. PT reports minimal assistance bed mobility, transfers, gait 10 feet with roller walker. OT reports supervision for upper dressing and toileting and minimal assistance for lower dressing, bathing and functional debility and transfers. Previous functional history as elicited from patient: 60-year-old right-handed white male who is single lives in a first-floor apartment with a niece and her . 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 Niece works part-time as keypunch operator for her grandkids. Patient previously independent indeed. PCP Dr. Loo. Patient reports smoking but just quit and denies alcohol. Review of Systems Review of systems: ENT: Denies sneezes or discharge. Eyes: Denies discharge or photophobia. Cardiac: Denies chest pain or palpitation. Pulmonary: Denies cough or shortness of breath. Gastrointestinal: Denies nausea, emesis, constipation, diarrhea. Genitourinary: Denies discharge or frequency. Musculoskeletal: Left stump pain. Neurologic: Denies motor or sensory change. He is concerned about mobility issues. Endocrine: Denies shakes or sweats. Oncology: Denies cancers. Dermatologic: Denies rash, itching, pruritus. ALLERGY/immunology: Denies sneezes, rashes. Past Medical History Past Medical History: Diabetes Mellitus Additional Past Medical History / Comment(s): Dt controlled DM History of Any Multi-Drug Resistant Organisms: None Reported Past Surgical History: No Surgical Hx Reported, Orthopedic Surgery, Tonsillectomy Past Psychological History: No Psychological Hx Reported Smoking Status: Current every day smoker Past Alcohol Use History: Rare Past Drug Use History: None Reported Medications and Allergies Home Medications Medication Instructions Recorded Confirmed Type No Known Home Medications 11/02/20 11/02/20 History Allergies Allergy/AdvReac Type Severity Reaction Status Date / Time No Known Allergies Allergy Verified 11/02/20 11:23 Physical Exam Vitals: Vital Signs Temp Pulse Resp BP Pulse Ox 11/09/20 01:40 98.3 F 96 16 146/79 97 11/08/20 19:54 98.5 F 98 17 158/83 96 11/08/20 13:31 98.3 F 87 18 150/83 98 11/08/20 07:54 98.2 F 86 16 147/75 96 Intake and Output 11/08/20 11/08/20 11/09/20 14:59 22:59 06:59 Output Total 850 1000 1240 Balance -850 -1000 -1240 Output: Urine 850 1000 1240 Other: Voiding Method Urinal Urinal # Voids 1 1 1 Skin: Good color, texture, turgor. General: Medium build and comfortable appearance. Head: Normocephalic, atraumatic. Eyes: Symmetric. Pupils equal round. Ears: Symmetric. Hearing within normal limits. Mouth: Clear. Neck: Supple. Carotid without bruit. Cardiac: Regular rate and rhythm. Lungs: Clear anteriorly and posteriorly. Abdomen: Soft active nontender. Extremities: Normal tone. Left leg consistent with AKA that is currently clean and dressed Neurological: Mental status: Alert, cooperative, pleasant. Cranial nerves: Symmetric facial tone and trapezius. Motor: Normal strength and isolation all 4 limbs. Sensation: Intact throughout. DTRs: Symmetric and equal throughout. Mobility: Did not attempt to sit or stand by myself this early a.m. Results CBC & Chem 7: 11/07/20 07:08 11/07/20 07:08 Labs: Abnormal Lab Results - Last 24 Hours (Table) 11/08/20 11/08/20 11/08/20 Range/Units 11:36 16:20 20:59 POC Glucose (mg/dL) 207 H 171 H 237 H (75-99) mg/dL Microbiology - Last 24 Hours (Table) 11/05/20 19:29 Blood Culture - Preliminary Blood No Growth after 72 hours Assessment and Plan (1) Diabetic ulcer of left foot Current Visit: Yes Status: Acute Code(s): E11.621 - TYPE 2 DIABETES MELLITUS WITH FOOT ULCER; L97.529 - NON-PRESSURE CHRONIC ULCER OTH PRT LEFT FOOT W UNSP SEVERITY SNOMED Code(s): 396422329 Plan: Impression: 1. Walking only. 2. Diabetic left foot ulcer with osteomyelitis. 3. Status post left TKA. Constant plan: At this time PT and OT are ongoing. Safety concerns noted currently and is demonstrated ability tolerate and benefit from therapies. Patient also has concerns about mobility issues. Discussed inpatient rehab with patient and he seems agreeable. I can also handle any disability paperwork that may follow later.
[2020-11-09 06:49] LABS: African American GFR (CKD) >90 (>60 ml/min/1.73 sqM); Non-African American GFR(CKD) >90 (>60 ml/min/1.73 sqM)
[2020-11-09 06:58] LABS: Glucose,Whole Blood 101 mg/dL (75-99)
[2020-11-09] MEDS: INSULIN ASPART (NovoLOG) 100 UNIT/ML VIAL SQ SCH ×4 (07:13→20:30)
[2020-11-09] MEDS: metroNIDAZOLE 500 MG TAB PO SCH ×3 (07:21→20:33)
[2020-11-09] MEDS: metFORMIN 500 MG TAB PO SCH ×2 (07:21→16:38)
[2020-11-09] MEDS: HYDROcodone/APAP 5-325MG 1 EACH TAB PO PRN ×3 (07:21→20:29)
[2020-11-09] MEDS: GABAPENTIN 300 MG CAP PO SCH ×3 (07:22→20:29)
[2020-11-09] MEDS: LACTATED RINGERS 1,000 ML IV SCH (07:29)
[2020-11-09] MEDS: NICOTINE 21MG/24HR PATCH TRANSDERM SCH (07:29)
[2020-11-09 11:34] LABS: Glucose,Whole Blood 204 mg/dL (75-99)
--- NOTE | 2020-11-09 13:22 | P.PN ---
Subjective Progress Note Date: 11/09/20 Principal diagnosis: Left foot wound, necrotizing fasciitis A shunt seen and examined sitting up at the bedside chair. He is doing well. Pain managed well managed. He has been afebrile. Physical therapy has been working with the patient. Plan is for discharge to inpatient rehab. Objective - Vital Signs Vital signs: Vital Signs Temp 98.5 F 11/09/20 09:06 Pulse 101 H 11/09/20 09:06 Resp 16 11/09/20 09:06 BP 147/85 11/09/20 09:06 Pulse Ox 97 11/09/20 09:06 Intake & Output 11/08/20 11/09/20 11/09/20 18:59 06:59 18:59 Intake Total 450 Output Total 1100 1989 800 Balance -1099 Intake: Oral 450 Output: Urine 1100 1989 Other: Voiding Method Urinal Urinal Urinal # Voids 1 1 - Exam General appearance: The patient is alert, oriented, in no acute distress. HET: Head is normocephalic and atraumatic. Neck: Supple without lymphadenopathy. Trachea midline. Heart: S1 S2. Regular rate and rhythm. Lungs: Clear to auscultation. Abdomen: Soft, nontender, nondistended. Extremities: Left hbuon-thf-yvjg amputation, incision site well approximated with bird, skin is pink, [place] drain intact with serosanguineous drainage. Carlos Alberto discontinued.. Neurological: No focal deficits. Alert and oriented 3. - Labs CBC & Chem 7: 11/07/20 07:08 11/09/20 05:57 Labs: Abnormal Lab Results - Last 24 Hours (Table) 11/08/20 11/08/20 11/08/20 Range/Units 11:36 16:20 20:59 Creatinine (0.66-1.25) mg/dL POC Glucose (mg/dL) 207 H 171 H 237 H (75-99) mg/dL 11/09/20 11/09/20 Range/Units 05:57 06:57 Creatinine 0.42 L (0.66-1.25) mg/dL POC Glucose (mg/dL) 101 H (75-99) mg/dL Microbiology - Last 24 Hours (Table) 11/05/20 19:29 Blood Culture - Preliminary Blood No Growth after 72 hours Assessment and Plan Assessment: 1. Status post left ettuh-amn-pned amputation 2. Left foot diabetic wound with possible necrotizing fasciitis 3. Diabetes mellitus 4. Current smoker Plan: 1. Continue antibiotics per recommendation of infectious disease 2. Continue physical therapy 3. Social work on consult for financial assistance 4. Daily dressing change, Carlos Alberto drain discontinued 5. Stump engineer and geologist and rigid dressing ordered Patient may be discharged from a vascular surgical standpoint. Agree with inpatient rehab. Thank you for this consultation and allowing us take part in the plan of care of your patient during his hospital stay The impression and plan of care has been dictated as directed. Dr. Baptiste I performed a history and examination of this patient, discussed the same with the dictator. I agree with the dictator's note ,documented as a scribe. Any additional findings or plans will be noted.
[2020-11-09 16:55] LABS: Glucose,Whole Blood 261 mg/dL (75-99)
--- NOTE | 2020-11-09 18:34 | PN ---
PROGRESS NOTE DATE OF SERVICE: 11/09/2020 REASON FOR FOLLOWUP: Left leg necrotizing infection and bacteremia. INTERVAL HISTORY: The patient is afebrile. The patient is breathing comfortably. The patient's pain to the left BKA stump is currently controlled. No chest pain, shortness of breath, cough. No abdominal pain or diarrhea. PHYSICAL EXAMINATION: Blood pressure 154/87, pulse of 92, temperature 98.8. He is 97% on room air. General description is a middle-aged male up in the chair in no distress. Respiratory system: Unlabored breathing. Clear to auscultation anteriorly. Heart S1, S2. Regular rate and rhythm. Abdomen soft, no tenderness. LABS: Creatinine 0.42. Blood culture repeat 125 and has been negative. DIAGNOSTIC IMPRESSION AND PLAN: Patient with left leg necrotizing infection in this patient who did have a streptococcal bacteremia, unfortunately has not been by the lab. Patient is covered with vancomycin and Flagyl to continue. Plan is for a total of 2 weeks from his negative blood cultures. Continue supportive care. MMODL / IJN: [id number] /
[2020-11-09 20:22] LABS: Glucose,Whole Blood 211 mg/dL (75-99)
[2020-11-09] MEDS: INSULIN DETEMIR (LEVEMIR) 100 UNIT/ML SYR SQ SCH (20:32)
[2020-11-10] MEDS: VANCOMYCIN 1,500 MG in SODIUM CHLORIDE 0.9% 250 ML IVPB SCH ×3 (03:51→21:08)
[2020-11-10 06:40] LABS: African American GFR (CKD) >90 (>60 ml/min/1.73 sqM); Non-African American GFR(CKD) >90 (>60 ml/min/1.73 sqM)
--- NOTE | 2020-11-10 06:55 | PN ---
PROGRESS NOTE A 60-year-old white male status post left below-knee amputation. He says his pain is much better. He is on low-dose [place] and Neurontin. He is on Levemir insulin 25 units a day and Accu-Chek protocol, as well as metformin for diabetes. He is on Flagyl and vancomycin for possible wound infection. Blood sugar has been in the 100-200s. He states he is improving. His white count is now normal. His hemoglobin is up to 9.7 from 8.3. Cardiovascular S1-S2. Lungs clear. GI soft. Hematology negative Homans. Psych fair mood and affect. Musculoskeletal: He has left BKA. ASSESSMENT: 1. Status post amputation. Waiting for rehab. 2. Diabetes mellitus. Will have to be on insulin and Accu-Chek protocol. Possible discharge home in the next 24-48 hours to rehab center. MMREGULOL / STUARTN: [id number] /
[2020-11-10 07:12] LABS: Glucose,Whole Blood 71 mg/dL (75-99)
[2020-11-10] MEDS: NICOTINE 21MG/24HR PATCH TRANSDERM SCH (07:19)
[2020-11-10] MEDS: INSULIN ASPART (NovoLOG) 100 UNIT/ML VIAL SQ SCH ×5 (07:19→21:27)
[2020-11-10] MEDS: LACTATED RINGERS 1,000 ML IV SCH (07:20)
[2020-11-10] MEDS: HYDROcodone/APAP 5-325MG 1 EACH TAB PO PRN ×3 (07:32→21:08)
[2020-11-10] MEDS: metFORMIN 500 MG TAB PO SCH ×2 (07:33→17:39)
[2020-11-10] MEDS: GABAPENTIN 300 MG CAP PO SCH ×3 (07:33→21:08)
[2020-11-10] MEDS: metroNIDAZOLE 500 MG TAB PO SCH ×3 (07:33→21:08)
[2020-11-10 07:58] LABS: Glucose,Whole Blood 84 mg/dL (75-99)
[2020-11-10 08:12] LABS: Glucose,Whole Blood 119 mg/dL (75-99)
[2020-11-10 11:31] LABS: Glucose,Whole Blood 210 mg/dL (75-99)
[2020-11-10 16:55] LABS: Glucose,Whole Blood 154 mg/dL (75-99)
--- NOTE | 2020-11-10 17:05 | PN ---
PROGRESS NOTE DATE OF SERVICE: 11/10/2020 REASON FOR FOLLOWUP: Left leg necrotizing infection and bacteremia. INTERVAL HISTORY: The patient is afebrile. The patient is breathing comfortably. Currently waiting for placement. No chest pain, shortness of breath. No cough. No abdominal pain. Pain to the left AKA stump is currently controlled. PHYSICAL EXAMINATION: Blood pressure 140/85, pulse of 85, temperature 98.5, and he is 97% on room air. General description is a middle aged male up in the chair in no distress. Respiratory system: Unlabored breathing, clear to auscultation anteriorly. Heart S1, S2. Regular rate and rhythm. Abdomen soft, no tenderness. The left AKA stump is currently dressed up, no obvious drainage on the dressing. DIAGNOSTIC IMPRESSION AND PLAN: Patient with left leg necrotizing infection status post left above knee amputation. The patient did have evidence of bacteremia. Patient is covered with vancomycin. Repeat blood culture has been negative. Plan is for a total of 2 weeks from negative blood cultures. Continue supportive care. MMODL / IJN: [id number] /
[2020-11-10 21:22] LABS: Glucose,Whole Blood 202 mg/dL (75-99)
[2020-11-10] MEDS: INSULIN DETEMIR (LEVEMIR) 100 UNIT/ML SYR SQ SCH (21:27)
[2020-11-11] MEDS: VANCOMYCIN 1,500 MG in SODIUM CHLORIDE 0.9% 250 ML IVPB SCH ×3 (04:48→20:36)
[2020-11-11] MEDS: HYDROcodone/APAP 5-325MG 1 EACH TAB PO PRN ×3 (04:48→19:37)
[2020-11-11 07:29] LABS: Glucose,Whole Blood 86 mg/dL (75-99)
[2020-11-11] MEDS: INSULIN ASPART (NovoLOG) 100 UNIT/ML VIAL SQ SCH ×4 (07:54→21:58)
--- NOTE | 2020-11-11 07:54 | PN ---
PROGRESS NOTE A 60-year-old white male remains on pain medication. Pain is under better control. Vancomycin is being given as well as Flagyl for the wound infection status post amputation repair. Cardiovascular S1-S2. Lungs clear. GI soft. Hematology negative Homans. ASSESSMENT: 1. Status post left leg necrotizing infection bacteremia. 2. Status post amputation of the left leg. Continue vancomycin. Repeat blood cultures negative. Total 2 weeks of vancomycin. Possible discharge home or to rehab center as he is unable to ambulate at placed on his left leg. MMODL / IJN: [id number] /
[2020-11-11] MEDS: LACTATED RINGERS 1,000 ML IV SCH (07:57)
[2020-11-11] MEDS: metFORMIN 500 MG TAB PO SCH ×2 (08:04→17:06)
[2020-11-11] MEDS: GABAPENTIN 300 MG CAP PO SCH ×3 (08:04→21:58)
[2020-11-11] MEDS: metroNIDAZOLE 500 MG TAB PO SCH ×3 (08:04→21:58)
[2020-11-11] MEDS: NICOTINE 21MG/24HR PATCH TRANSDERM SCH (08:05)
[2020-11-11 09:21] LABS: Basophils # (A) 0.06 X 10*3/uL (0.00-0.10); Basophils % (A) 0.7 %; Eosinophils # (A) 0.17 X 10*3/uL (0.04-0.35); Eosinophils % (A) 1.9 %; HCT 29.7 % (39.6-50.0); HGB 9.3 g/dL (13.0-17.0); Lymphocytes # (A) 1.36 X 10*3/uL (0.90-5.00); Lymphocytes % (A) 15.3 %; MCH 30.4 pg (27.0-32.0); MCHC 31.3 g/dL (32.0-37.0); MCV 97.1 fL (80.0-97.0); Mean Platelet Volume 8.8 fL (9.5-12.2); Monocytes # (A) 0.72 X 10*3/uL (0.20-1.00); Monocytes % (A) 8.1 %; Neutrophils % (A) 73.4 %; Platelet Count 403 X 10*3/uL (140-440); RBC 3.06 X 10*6/uL (4.40-5.60); RDW 14.7 % (11.5-14.5); WBC 8.86 X 10*3/uL (4.50-10.00)
[2020-11-11 10:37] LABS: African American GFR (CKD) 137.5 (60.0-200.0); Albumin 2.9 g/dL (3.80-4.90); Albumin/Globulin Ratio 0.94 (1.60-3.17); Calcium 8.4 mg/dL (8.7-10.3); Globulin 3.1 g/dL (1.6-3.3); Non-African American GFR(CKD) 118.6 (60.0-200.0); Potassium 4.2 mmol/L (3.5-5.5); Total Bilirubin 0.2 mg/dL (0.3-1.2)
[2020-11-11 11:31] LABS: Glucose,Whole Blood 296 mg/dL (75-99)
--- NOTE | 2020-11-11 12:16 | PN ---
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 He is on Levemir 25 units at night and Accu-Chek protocol for diabetes mellitus. Remains on vancomycin for wound infection. He is on nicotine patch. States his pain is presently controlled. Today's blood pressure 140s over 60s, 98% on room air, pulse is 80s to 90s, respiratory rate 16-18, temperature 98.7. Cardiovascular: S1, S2. Lungs clear. GI soft. Extremities: Show wound chandelier maker on the left stump. ASSESSMENT: 1. Status post below knee amputation, left leg. 2. Wound infection, left leg. 3. Diabetes mellitus. 4. Hypertension. Continue current treatment. Follow up in the next 24 to 48 hours. Waiting for rehab placement. MMODL / IJN: [id number] /
[2020-11-11 16:30] LABS: Glucose,Whole Blood 258 mg/dL (75-99)
--- NOTE | 2020-11-11 19:11 | PN ---
PROGRESS NOTE DATE OF SERVICE: 11/11/2020 REASON FOR FOLLOWUP: Left leg necrotizing infection and bacteremia. INTERVAL HISTORY: Patient is afebrile. The patient is breathing comfortably. Denies having any chest pain, shortness of breath or cough. No abdominal pain. Overall pain and discomfort to the left BKA stump is currently controlled. PHYSICAL EXAMINATION: Blood pressure 123/71 with a pulse of 83, temperature 98.8. He is 95% on room air. General description is a a middle-aged male up in the bed in no distress. Respiratory system unlabored breathing, clear to auscultation anteriorly. Heart S1, S2. Regular rate and rhythm. Abdomen is soft, no tenderness. Left BKA stump is currently dressed, no drainage on the dressing. LABS: Hemoglobin 9.1, white count 8.6, BUN of 14 and creatinine 0.5. Blood culture repeat has been negative. DIAGNOSTIC IMPRESSION AND PLAN: Patient with left leg necrotizing fascitis and pain and infection status post left ycvdh-aww-[id number] amputation. The patient did have bacteremia with nonhemolytic strep and anaerobes. Patient is covered with vancomycin as sensitivities are not finalized. Plan is for 2 weeks of antibiotics. Continue supportive care. MMODL / IJN: [id number] /
[2020-11-11 21:55] LABS: Glucose,Whole Blood 182 mg/dL (75-99)
[2020-11-11] MEDS: INSULIN DETEMIR (LEVEMIR) 100 UNIT/ML SYR SQ SCH (21:59)
[2020-11-12] MEDS ORDERED: VANCOMYCIN TROUGH DUE 1 EACH MISC MISCELLANE ONE (03:00)
[2020-11-12 04:38] LABS: African American GFR (CKD) >90 (>60 ml/min/1.73 sqM); Non-African American GFR(CKD) >90 (>60 ml/min/1.73 sqM)
[2020-11-12] MEDS: VANCOMYCIN 1,500 MG in SODIUM CHLORIDE 0.9% 250 ML IVPB SCH ×3 (04:44→20:15)
[2020-11-12 06:54] LABS: Glucose,Whole Blood 55 mg/dL (75-99)
[2020-11-12 07:12] LABS: Glucose,Whole Blood 60 mg/dL (75-99)
[2020-11-12 07:29] LABS: Glucose,Whole Blood 75 mg/dL (75-99)
[2020-11-12 07:53] LABS: Glucose,Whole Blood 79 mg/dL (75-99)
[2020-11-12] MEDS: INSULIN ASPART (NovoLOG) 100 UNIT/ML VIAL SQ SCH ×4 (08:10→21:13)
[2020-11-12] MEDS: LACTATED RINGERS 1,000 ML IV SCH (09:10)
[2020-11-12] MEDS: metFORMIN 500 MG TAB PO SCH ×2 (09:58→17:12)
[2020-11-12] MEDS: NICOTINE 21MG/24HR PATCH TRANSDERM SCH (09:58)
[2020-11-12] MEDS: GABAPENTIN 300 MG CAP PO SCH ×3 (09:58→21:13)
[2020-11-12] MEDS: metroNIDAZOLE 500 MG TAB PO SCH ×3 (09:58→21:13)
[2020-11-12 11:50] LABS: Glucose,Whole Blood 192 mg/dL (75-99)
--- NOTE | 2020-11-12 13:50 | PN ---
PROGRESS NOTE HISTORY: This 60-year-old white male is on Levemir, NovoLog, metformin, vancomycin, Flagyl. Having no chest pain. No shortness of breath. No chest pain. PHYSICAL EXAM: Cardiovascular S1, S2. Lungs clear. GI soft. Hematology negative Homans. Psych fair mood and affect. Left leg below-knee amputation. Diabetes mellitus with on his left leg. PROGNOSIS: Guarded. PLAN: Continue current treatment. Follow up next 24 to 48 hours. He will have to go home on insulin or to rehab center. He is unable to walk due to left leg BKA. Waiting for rehab placement. He is status post left leg necrotizing fasciitis with bacteremia with nonhemolytic strep and anaerobes cover vancomycin. Sensitivities not finalized. He will need 2 weeks of IV antibiotics. MMODL / IJN: [id number] /
[2020-11-12 16:40] LABS: Glucose,Whole Blood 203 mg/dL (75-99)
--- NOTE | 2020-11-12 19:19 | PN ---
PROGRESS NOTE DATE OF SERVICE: 11/12/2020 REASON FOR FOLLOWUP: 1. Left leg necrotizing infection. 2. Bacteremia. INTERVAL HISTORY: Patient is currently afebrile. The patient is breathing comfortably. The patient denies having any chest pain. No shortness of breath or cough. No abdominal pain. Overall pain to the left is currently controlled. PHYSICAL EXAMINATION: Blood pressure is 135/78 with a pulse of 90, temperature 98.9. He is 96% on room air. General description is a middle-aged male lying in bed in no distress. Respiratory system: Unlabored breathing. Clear to auscultation anteriorly. Heart S1, S2. Regular rate and rhythm. Abdomen soft, no tenderness. Left AKA stump currently dressed. No obvious drainage on the dressing. DIAGNOSTIC IMPRESSION AND PLAN: Patient with left leg necrotizing infection requiring left wjjjq-[id number]-[id number] amputation. Did have streptococcal bacteremia which was not finalized. Patient is covered with vancomycin, to finish 2 week course of therapy. Blood cultures. Continue supportive care. MMODL / IJN: [id number] /
[2020-11-12 21:09] LABS: Glucose,Whole Blood 249 mg/dL (75-99)
[2020-11-12] MEDS: INSULIN DETEMIR (LEVEMIR) 100 UNIT/ML SYR SQ SCH (21:13)
[2020-11-13] MEDS: VANCOMYCIN 1,500 MG in SODIUM CHLORIDE 0.9% 250 ML IVPB SCH ×3 (04:17→21:02)
[2020-11-13 06:52] LABS: Glucose,Whole Blood 106 mg/dL (75-99)
[2020-11-13] MEDS: INSULIN ASPART (NovoLOG) 100 UNIT/ML VIAL SQ SCH ×4 (07:16→21:03)
[2020-11-13] MEDS: metFORMIN 500 MG TAB PO SCH ×2 (07:19→17:26)
[2020-11-13] MEDS: HYDROcodone/APAP 5-325MG 1 EACH TAB PO PRN ×3 (07:19→22:02)
[2020-11-13] MEDS: LACTATED RINGERS 1,000 ML IV SCH (09:05)
[2020-11-13] MEDS: NICOTINE 21MG/24HR PATCH TRANSDERM SCH (09:06)
[2020-11-13] MEDS: GABAPENTIN 300 MG CAP PO SCH ×3 (09:07→21:04)
[2020-11-13] MEDS: metroNIDAZOLE 500 MG TAB PO SCH ×3 (09:07→21:04)
[2020-11-13] MEDS: HYDROmorphone 0.5 MG/0.5 ML SYRINGE IVP PRN (09:09)
[2020-11-13 11:43] LABS: Glucose,Whole Blood 166 mg/dL (75-99)
[2020-11-13 16:47] LABS: Glucose,Whole Blood 169 mg/dL (75-99)
[2020-11-13 20:37] LABS: Glucose,Whole Blood 239 mg/dL (75-99)
[2020-11-13] MEDS: INSULIN DETEMIR (LEVEMIR) 100 UNIT/ML SYR SQ SCH (21:03)
[2020-11-13] MEDS: ZOLPIDEM 5 MG TAB PO PRN (22:03)
[2020-11-14] MEDS: VANCOMYCIN 1,500 MG in SODIUM CHLORIDE 0.9% 250 ML IVPB SCH ×3 (03:38→20:17)
[2020-11-14] MEDS: HYDROcodone/APAP 5-325MG 1 EACH TAB PO PRN ×3 (06:09→16:58)
[2020-11-14 07:04] LABS: Glucose,Whole Blood 68 mg/dL (75-99)
[2020-11-14] MEDS: INSULIN ASPART (NovoLOG) 100 UNIT/ML VIAL SQ SCH ×4 (07:27→20:17)
[2020-11-14] MEDS: LACTATED RINGERS 1,000 ML IV SCH (07:50)
[2020-11-14] MEDS: NICOTINE 21MG/24HR PATCH TRANSDERM SCH (07:50)
[2020-11-14] MEDS: GABAPENTIN 300 MG CAP PO SCH ×3 (08:03→20:18)
[2020-11-14] MEDS: metroNIDAZOLE 500 MG TAB PO SCH ×3 (08:03→20:18)
[2020-11-14] MEDS: metFORMIN 500 MG TAB PO SCH ×2 (08:03→16:58)
[2020-11-14 08:22] LABS: African American GFR (CKD) >90 (>60 ml/min/1.73 sqM); Non-African American GFR(CKD) >90 (>60 ml/min/1.73 sqM)
--- NOTE | 2020-11-14 09:14 | PN ---
PROGRESS NOTE DATE OF SERVICE: 11/13/2020. REASON FOR FOLLOWUP: Urinary tract infection and bacteremia. INTERVAL HISTORY: Patient is afebrile. The patient is breathing comfortably/ The patient denies having any chest pain. No shortness of breath or cough. No abdominal pain or pain to the left AKA stump area. PHYSICAL EXAMINATION: Blood pressure is 130/70 with a pulse of 89, temperature 98.3. He is 98% on room air. General description is a middle-aged male lying in bed in no distress. Respiratory system: Unlabored breathing, clear to auscultation anteriorly. Heart S1, S2. Regular rate and rhythm. Abdomen soft, no tenderness. Left AKA stump is currently dressed. No obvious drainage on the dressing. LABS: Blood culture repeat has been negative. DIAGNOSTIC IMPRESSION AND PLAN: Patient with left leg necrotizing infection status post left above the knee amputation with streptococcal bacteremia. The patient is covered with vancomycin, Flagyl. Patient to finish a 2 week course of therapy and monitor clinical course closely. MMODL / IJN: [id number] /
[2020-11-14 09:25] LABS: Glucose,Whole Blood 164 mg/dL (75-99)
--- NOTE | 2020-11-14 09:30 | PN ---
PROGRESS NOTE A 60-year-old white male with left foot diabetic ulcer, insulin dependent diabetes mellitus. Having no chest pain, shortness of breath. Cardiovascular S1, S2. Lungs clear. 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 Await for discharge planning for rehab placement. Continue with IV antibiotics for 10 days for bacteremia of 3 different organisms. PROGNOSIS: Guarded. MMODL / IJN: [id number] /
[2020-11-14 11:52] LABS: Glucose,Whole Blood 118 mg/dL (75-99)
--- NOTE | 2020-11-14 14:52 | DS ---
DISCHARGE SUMMARY A 60-year-old white male, urinary tract infection, bacteremia, necrotizing fasciitis of the left leg above the knee amputation due to streptococcal bacteremia. The patient was given IV vancomycin and Flagyl. Continue with 2 week course of therapy. Monitor vancomycin levels per pharmacy, pharmacy to dose. He was found to be uncontrolled diabetic, also A1c of 15.6. He is taking no medicines at home as well as hypertension acceleration. Diabetic diet. Ambulate as tolerated. MEDICATIONS: Include Flagyl 500 t.i.d. for 2 weeks, metformin 500 b.i.d., Levemir 25 units daily. Vancomycin 1500 mg IV piggyback q.8 hours. Pharmacy to dose for 2 weeks. Nicotine patch 21 mg daily, Neurontin 300 t.i.d., NovoLog a.c. and q.h.s., Levemir 25 units daily, nicotine patch 21 mg daily, gabapentin 300 t.i.d., metformin 500 b.i.d. CONDITION: Stable. PROGNOSIS: Guarded. Ambulate as tolerated. 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 He will need orthotic placement. DISCHARGE DIAGNOSES: 1. Above-knee amputation, left leg. 2. Secondary necrotizing fasciitis. 3. Diabetic ulcer from noncontrolled diabetes mellitus of the left foot. 4. Insulin-dependent diabetes mellitus. 5. Hyponatremia. 6. Nicotine addiction. Prognosis is guarded. Condition stable. Follow up as an outpatient, Dr. Chicho Loo at the care home. Please see further orders. MMODL / IJN: [id number] /
[2020-11-14 16:49] LABS: Glucose,Whole Blood 303 mg/dL (75-99)
[2020-11-14] MEDS: HYDROmorphone 0.5 MG/0.5 ML SYRINGE IVP PRN (19:21)
--- NOTE | 2020-11-14 19:46 | PN ---
PROGRESS NOTE DATE OF SERVICE: 11/14/2020 REASON FOR FOLLOWUP: Left leg necrotizing infection and bacteremia. INTERVAL HISTORY: The patient is afebrile. The patient is breathing comfortably. Denies having any chest pain. No shortness of breath. No cough. No abdominal pain. Pain to the left AKA stump is currently controlled. PHYSICAL EXAMINATION: Blood pressure 115/66, pulse of 90, temperature 98.4. General description is a middle- aged male lying in bed in no distress. Respiratory system: Unlabored breathing, clear to auscultation anteriorly. Heart S1, S2. Regular rate and rhythm. Abdomen soft, no tenderness. Left AKA stump is currently dressed. No obvious drainage on the dressing. LABS: Creatinine 0.47. DIAGNOSTIC IMPRESSION AND PLAN: Patient with left leg necrotizing infection and secondary bacteremia status post left qniaq-iey-najj amputation as well as bacteremia. The patient antibiotic to continue for another 3-4 days to finish a two week course of therapy from negative blood cultures. Continue supportive care. MMODL / IJN: [id number] /
[2020-11-14 20:09] LABS: Glucose,Whole Blood 264 mg/dL (75-99)
[2020-11-14] MEDS: INSULIN DETEMIR (LEVEMIR) 100 UNIT/ML SYR SQ SCH (20:17)
[2020-11-14] MEDS: ZOLPIDEM 5 MG TAB PO PRN (20:28)
[2020-11-15] MEDS: VANCOMYCIN 1,500 MG in SODIUM CHLORIDE 0.9% 250 ML IVPB SCH ×3 (03:58→20:23)
[2020-11-15 06:55] LABS: Glucose,Whole Blood 72 mg/dL (75-99)
[2020-11-15] MEDS: INSULIN ASPART (NovoLOG) 100 UNIT/ML VIAL SQ SCH ×4 (07:12→20:22)
[2020-11-15] MEDS: NICOTINE 21MG/24HR PATCH TRANSDERM SCH (08:11)
[2020-11-15] MEDS: GABAPENTIN 300 MG CAP PO SCH ×3 (08:14→20:23)
[2020-11-15] MEDS: metFORMIN 500 MG TAB PO SCH ×2 (08:14→17:04)
[2020-11-15] MEDS: metroNIDAZOLE 500 MG TAB PO SCH ×3 (08:14→20:23)
[2020-11-15] MEDS: LACTATED RINGERS 1,000 ML IV SCH (08:15)
[2020-11-15] MEDS: HYDROcodone/APAP 5-325MG 1 EACH TAB PO PRN ×2 (08:15→16:40)
[2020-11-15 11:49] LABS: Glucose,Whole Blood 163 mg/dL (75-99)
[2020-11-15 16:50] LABS: Glucose,Whole Blood 247 mg/dL (75-99)
--- NOTE | 2020-11-15 17:13 | PN ---
PROGRESS NOTE DATE OF SERVICE: 11/15/2020 REASON FOR FOLLOWUP: Left leg necrotic infection and bacteremia. INTERVAL HISTORY: The patient is afebrile. The patient is breathing comfortably. Denies any chest pain. No cough. No abdominal pain. No worsening pain to the left leg. PHYSICAL EXAMINATION: Blood pressure is 133/73 with a pulse of 80, 99%. General description is a middle- aged male up in the chair in no distress. Respiratory system: Unlabored breathing, clear to auscultation anteriorly. Heart S1, S2. Regular rate and rhythm. Abdomen: Soft. No tenderness. Left leg is still currently dressed. No swelling. No redness. LABS: No new labs have been obtained today. DIAGNOSTIC IMPRESSION AND PLAN: Patient with left leg necrotizing infection left above knee amputation, patient received about 2 weeks of antibiotic and repeat culture negative. No need for antibiotic on discharge. This was discussed with the insurance case manager working on discharge. MMODL / IJN: [id number] /
[2020-11-15 20:14] LABS: Glucose,Whole Blood 355 mg/dL (75-99)
[2020-11-15 20:14] LABS: Glucose,Whole Blood 334 mg/dL (75-99)
[2020-11-15] MEDS: ZOLPIDEM 5 MG TAB PO PRN (20:23)
[2020-11-15] MEDS: INSULIN DETEMIR (LEVEMIR) 100 UNIT/ML SYR SQ SCH (20:23)
--- NOTE | 2020-11-15 23:51 | PN ---
PROGRESS NOTE This is a 60-year-old white male status post above knee amputation of the left leg for necrotizing fascitis. Cardiovascular S1-S2 lungs clear. GI soft. Hematology negative Homans. Psych fair mood and affect ASSESSMENT: Left foot diabetic ulcer status post necrotizing fasciitis. Follow up in the next 24 to 48 hours for discharge. MMODL / IJN: [id number] /
[2020-11-16] MEDS: VANCOMYCIN 1,500 MG in SODIUM CHLORIDE 0.9% 250 ML IVPB SCH ×2 (03:55→11:54)
[2020-11-16 07:06] LABS: Glucose,Whole Blood 210 mg/dL (75-99)
[2020-11-16] MEDS: NICOTINE 21MG/24HR PATCH TRANSDERM SCH (07:27)
[2020-11-16] MEDS: GABAPENTIN 300 MG CAP PO SCH (07:28)
[2020-11-16] MEDS: LACTATED RINGERS 1,000 ML IV SCH (07:28)
[2020-11-16] MEDS: INSULIN ASPART (NovoLOG) 100 UNIT/ML VIAL SQ SCH ×2 (07:28→12:12)
[2020-11-16] MEDS: metFORMIN 500 MG TAB PO SCH (07:28)
[2020-11-16] MEDS: metroNIDAZOLE 500 MG TAB PO SCH (07:28)
[2020-11-16 07:52] VITALS: BP 124/73; PULSE 99; RESP 17; TEMP 97.7
[2020-11-16 08:22] LABS: African American GFR (CKD) >90 (>60 ml/min/1.73 sqM); Non-African American GFR(CKD) >90 (>60 ml/min/1.73 sqM)
[2020-11-16 11:32] LABS: Glucose,Whole Blood 182 mg/dL (75-99)
--- NOTE | 2020-11-16 13:27 | PN ---
PROGRESS NOTE DATE OF SERVICE: 11/16/2020. REASON FOR FOLLOWUP: Left leg necrotizing infection and bacteremia. INTERVAL HISTORY: The patient is afebrile. The patient is breathing comfortably. Denies having any chest pain, shortness of breath, cough, no abdominal pain. Pain to the left AKA stump is currently controlled. PHYSICAL EXAMINATION: Blood pressure 124/70, pulse of 99, temperature 99.7. He is 99% on room air. General description is a middle-aged male up in the chair in no distress. Respiratory system: Unlabored breathing, clear to auscultation anteriorly. Heart S1, S2. Regular rate and rhythm. Abdomen: Soft. No tenderness. Left AKA stump is currently dressed. No drainage on the dressing. DIAGNOSTIC IMPRESSION AND PLAN: Patient with left leg necrotizing infection status post left kepjv-cdf-xktt amputation with evidence of streptococcal bacteremia that has been adequately treated. Patient completed antibiotic therapy. No need for antibiotic on discharge and close outpatient followup. MMODL / IJN: [id number] /
== END 2020-11-16 14:07 | disposition home or self-care (01) | DRG 853 ==
LOC: EC 08:19 → 4SSUR 10:23
PROVIDERS: ADMIT Family Medicine; ATTEND Family Medicine
PROC: 0Y6D0Z2 Detachment at Left Upper Leg, Mid, Open Approach (ICD-10-PCS; principal; 2020-11-02 14:00)
PROC: 30233N1 Transfusion of Nonautologous Red Blood Cells into Peripheral Vein, Percutaneous Approach (ICD-10-PCS; 2020-11-04)
PROC: 0HQJXZZ Repair Left Upper Leg Skin, External Approach (ICD-10-PCS; 2020-11-05)
DX: A41.81 Sepsis due to Enterococcus (principal); M72.6 Necrotizing fasciitis; A48.0 Gas gangrene; E11.52 Type 2 diabetes mellitus with diabetic peripheral angiopathy with gangrene; E87.1 Hypo-osmolality and hyponatremia; D62 Acute posthemorrhagic anemia; L97.409 Non-pressure chronic ulcer of unspecified heel and midfoot with unspecified severity; M86.172 Other acute osteomyelitis, left ankle and foot; N39.0 Urinary tract infection, site not specified; E11.621 Type 2 diabetes mellitus with foot ulcer; E11.628 Type 2 diabetes mellitus with other skin complications; E11.65 Type 2 diabetes mellitus with hyperglycemia; I10 Essential (primary) hypertension; G54.6 Phantom limb syndrome with pain; E11.69 Type 2 diabetes mellitus with other specified complication; F17.210 Nicotine dependence, cigarettes, uncomplicated; L97.529 Non-pressure chronic ulcer of other part of left foot with unspecified severity; S91.312D Laceration without foreign body, left foot, subsequent encounter; W45.0XXD Nail entering through skin, subsequent encounter; Z59.7 Insufficient social insurance and welfare support; Z79.4 Long term (current) use of insulin; Z96.652 Presence of left artificial knee joint; Z90.89 Acquired absence of other organs
CPT/HCPCS: 36415; 64445; 64447; 76942; 80053; 80061; 80202; 82565; 83036; 83605; 85025; 85652; 86140; 86850; 86900; 86901; 86920; 87040; 87070; 87077; 87186; 87205; 90471; 90715; 96361; 96365; 96367; 96375; 99291

== ENCOUNTER 2020-11-16 19:56 | Emergency (ER) | payer OTHER ==
[2020-11-16 21:15] LABS: Basophils # (A) 0.1 k/uL (0-0.2); Basophils % (A) 0 %; Eosinophils # (A) 0.2 k/uL (0-0.7); Eosinophils % (A) 2 %; HCT 30.2 % (39.0-53.0); HGB 9.6 gm/dL (13.0-17.5); Hypochromasia Slight; Lymphocytes # (A) 1.4 k/uL (1.0-4.8); Lymphocytes % (A) 13 %; MCH 30.7 pg (25.0-35.0); MCHC 31.8 g/dL (31.0-37.0); MCV 96.4 fL (80.0-100.0); Mean Platelet Volume 7.4; Monocytes # (A) 0.6 k/uL (0-1.0); Monocytes % (A) 5 %; Neutrophils # (A) 8.6 k/uL (1.3-7.7); Neutrophils % (A) 78 %; Platelet Count 392 k/uL (150-450); RBC 3.13 m/uL (4.30-5.90); RDW 14.9 % (11.5-15.5); WBC 10.9 k/uL (3.8-10.6)
[2020-11-16] MEDS ORDERED: MORPHINE SULFATE 4 MG/ML SYRINGE IV STA (21:18)
--- NOTE | 2020-11-16 21:24 | ED ---
General Adult HPI - General Chief complaint: Recheck/Abnormal Lab/Rx Stated complaint: post surgical bleeding Time Seen by Provider: 11/16/20 20:45 Source: patient, family Mode of arrival: wheelchair - History of Present Illness Onset/Timin -: hour(s) Location: left, lower extremity Radiation: non-radiation Quality: burning, aching Consistency: constant Improves with: none Worsens with: none Associated Symptoms: denies other symptoms Treatments Prior to Arrival: other - Related Data Home Medications Medication Instructions Recorded Confirmed Acetaminophen [Tylenol Extra 1,000 mg PO Q6H PRN 11/16/20 11/16/20 Strength] INSULIN ASPART (NovoLOG) [NovoLOG See Protocol SQ ACHS 11/16/20 11/16/20 (formulary)] Previous Rx's Medication Instructions Recorded Gabapentin [Neurontin] 300 mg PO TID cap 11/14/20 Insulin Detemir (Levemir) [Levemir] 25 unit SQ HS syr 11/14/20 metFORMIN HCL [Glucophage] 500 mg PO AC-BID tab 11/14/20 Cephalexin [Keflex] 500 mg PO Q6HR #28 cap 11/17/20 Allergies Allergy/AdvReac Type Severity Reaction Status Date / Time No Known Allergies Allergy Verified 11/16/20 21:28 Review of Systems ROS Statement: Those systems with pertinent positive or pertinent negative responses have been documented in the HPI. ROS Other: All systems not noted in ROS Statement are negative. Constitutional: Denies: fever, chills, weakness Respiratory: Denies: cough, dyspnea Cardiovascular: Denies: chest pain, palpitations, orthopnea, syncope Gastrointestinal: Denies: abdominal pain, vomiting, diarrhea Genitourinary: Denies: dysuria, hematuria Musculoskeletal: Denies: back pain Skin: Denies: rash Neurological: Denies: headache, weakness, numbness Past Medical History Past Medical History: Diabetes Mellitus Additional Past Medical History / Comment(s): Dt controlled DM History of Any Multi-Drug Resistant Organisms: None Reported Past Surgical History: No Surgical Hx Reported, Orthopedic Surgery, Tonsillectomy Additional Past Surgical History / Comment(s): Lef tabove knee amputation 2020 Past Psychological History: No Psychological Hx Reported Smoking Status: Current every day smoker Past Alcohol Use History: Rare Past Drug Use History: None Reported Course Vital Signs 11/16/20 11/16/20 11/16/20 20:10 22:04 23:47 Temperature 98.3 F Pulse Rate 100 97 92 Respiratory 18 18 16 Rate Blood Pressure 129/58 151/81 123/66 O2 Sat by Pulse 99 97 99 Oximetry Medical Decision Making - Lab Data Result diagrams: 11/16/20 21:03 11/16/20 21:03 Lab Results 11/16/20 11/16/20 11/16/20 Range/Units 21:00 21:03 21:03 WBC 10.9 H (3.8-10.6) k/uL RBC 3.13 L (4.30-5.90) m/uL Hgb 9.6 L (13.0-17.5) gm/dL Hct 30.2 L (39.0-53.0) % MCV 96.4 (80.0-100.0) fL MCH 30.7 (25.0-35.0) pg MCHC 31.8 (31.0-37.0) g/dL RDW 14.9 (11.5-15.5) % Plt Count 392 (150-450) k/uL MPV 7.4 Neutrophils % 78 % Lymphocytes % 13 % Monocytes % 5 % Eosinophils % 2 % Basophils % 0 % Neutrophils # 8.6 H (1.3-7.7) k/uL Lymphocytes # 1.4 (1.0-4.8) k/uL Monocytes # 0.6 (0-1.0) k/uL Eosinophils # 0.2 (0-0.7) k/uL Basophils # 0.1 (0-0.2) k/uL Hypochromasia Slight PT 11.2 (9.0-12.0) sec INR 1.1 (<1.2) APTT 23.8 (22.0-30.0) sec Sodium (137-145) mmol/L Potassium (3.5-5.1) mmol/L Chloride (98-107) mmol/L Carbon Dioxide (22-30) mmol/L Anion Gap mmol/L BUN (9-20) mg/dL Creatinine (0.66-1.25) mg/dL Est GFR (CKD-EPI)AfAm (>60 ml/min/1.73 sqM) Est GFR (CKD-EPI)NonAf (>60 ml/min/1.73 sqM) Glucose (74-99) mg/dL Calcium (8.4-10.2) mg/dL Total Bilirubin (0.2-1.3) mg/dL AST (17-59) U/L ALT (4-49) U/L Alkaline Phosphatase (38-126) U/L Total Protein (6.3-8.2) g/dL Albumin (3.5-5.0) g/dL Blood Type A Positive Blood Type Recheck A Pos Bld Type Recheck Status No Antibody Screen NEGATIVE Spec Expiration Date 11/19/2020 - 229911/16/20 Range/Units 21:03 WBC (3.8-10.6) k/uL RBC (4.30-5.90) m/uL Hgb (13.0-17.5) gm/dL Hct (39.0-53.0) % MCV (80.0-100.0) fL MCH (25.0-35.0) pg MCHC (31.0-37.0) g/dL RDW (11.5-15.5) % Plt Count (150-450) k/uL MPV Neutrophils % % Lymphocytes % % Monocytes % % Eosinophils % % Basophils % % Neutrophils # (1.3-7.7) k/uL Lymphocytes # (1.0-4.8) k/uL Monocytes # (0-1.0) k/uL Eosinophils # (0-0.7) k/uL Basophils # (0-0.2) k/uL Hypochromasia PT (9.0-12.0) sec INR (<1.2) APTT (22.0-30.0) sec Sodium 133 L (137-145) mmol/L Potassium 4.6 (3.5-5.1) mmol/L Chloride 101 (98-107) mmol/L Carbon Dioxide 26 (22-30) mmol/L Anion Gap 6 mmol/L BUN 18 (9-20) mg/dL Creatinine 0.49 L (0.66-1.25) mg/dL Est GFR (CKD-EPI)AfAm >90 (>60 ml/min/1.73 sqM) Est GFR (CKD-EPI)NonAf >90 (>60 ml/min/1.73 sqM) Glucose 224 H (74-99) mg/dL Calcium 8.7 (8.4-10.2) mg/dL Total Bilirubin 0.2 (0.2-1.3) mg/dL AST 21 (17-59) U/L ALT 19 (4-49) U/L Alkaline Phosphatase 65 (38-126) U/L Total Protein 6.4 (6.3-8.2) g/dL Albumin 2.9 L (3.5-5.0) g/dL Blood Type Blood Type Recheck Bld Type Recheck Status Antibody Screen Spec Expiration Date Disposition Clinical Impression: Visit for wound check Disposition: HOME SELF-CARE Condition: Good Instructions (If sedation given, give patient instructions): Above the Knee Amputation (DC) Prescriptions: Cephalexin [Keflex] 500 mg PO Q6HR #28 cap Is patient prescribed a controlled substance at d/c from ED?: No Referrals: Chicho Loo MD [Primary Care Provider] - 1-2 days
[2020-11-16 21:33] LABS: ALT 19 U/L (4-49); AST 21 U/L (17-59); African American GFR (CKD) >90 (>60 ml/min/1.73 sqM); Albumin 2.9 g/dL (3.5-5.0); Alkaline Phosphatase 65 U/L (38-126); Anion Gap 6 mmol/L; Blood Urea Nitrogen 18 mg/dL (9-20); Calcium 8.7 mg/dL (8.4-10.2); Carbon Dioxide 26 mmol/L (22-30); Chloride 101 mmol/L (98-107); Glucose 224 mg/dL (74-99); Non-African American GFR(CKD) >90 (>60 ml/min/1.73 sqM); Potassium 4.6 mmol/L (3.5-5.1); Sodium 133 mmol/L (137-145); Total Bilirubin 0.2 mg/dL (0.2-1.3); Total Protein 6.4 g/dL (6.3-8.2)
[2020-11-16 21:34] LABS: INR 1.1 (<1.2); Partial Thromboplastin Time 23.8 sec (22.0-30.0); Prothrombin Time 11.2 sec (9.0-12.0)
[2020-11-17 02:00] VITALS: BP 121/75; PULSE 71; RESP 20; TEMP 98.2
== END 2020-11-17 01:30 | disposition home or self-care (01) ==
LOC: EC 19:56
DX: L76.22 Postprocedural hemorrhage of skin and subcutaneous tissue following other procedure (principal); E11.9 Type 2 diabetes mellitus without complications; F17.200 Nicotine dependence, unspecified, uncomplicated; Z79.4 Long term (current) use of insulin; Z79.899 Other long term (current) drug therapy
CPT/HCPCS: 36415; 86900; 86901; 80053; 85025; 85610; 85730; 86850; 87070; 87205; 96374; 99283; J2270

== ENCOUNTER 2023-05-28 04:40 | Emergency (ER) | payer SELFPAY ==
[2023-05-28 05:06] VITALS: RESP 16
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
[2023-05-28 07:00] VITALS: BP 156/97; PULSE 90; TEMP 98.8
== END 2023-05-28 06:43 | disposition home or self-care (01) ==
LOC: EC 04:40
DX: Z20.828 Contact with and (suspected) exposure to other viral communicable diseases (principal); E11.9 Type 2 diabetes mellitus without complications; F17.200 Nicotine dependence, unspecified, uncomplicated; Z79.4 Long term (current) use of insulin
CPT/HCPCS: 99283

== ENCOUNTER 2024-02-27 11:11 | Emergency (ER) | payer MEDICARE, OTHER ==
--- NOTE | 2024-02-27 11:52 | ED ---
General Adult HPI - General Chief complaint: Altered Mental Status Stated complaint: petition Time Seen by Provider: 02/27/24 11:46 Source: patient, EMS, RN notes reviewed, old records reviewed Mode of arrival: EMS Limitations: physical limitation - History of Present Illness Initial comments: Is a 63-year-old male who presents to the emergency department without any complaint. Patient was sent in because he had a petition filled out by his sister yesterday. According to the complaint the patient is talking to people that are not there and he thinks some government agency is trying to put something in his head and he is not taking care of himself and not showering and not taking care of his apartment. Patient denies all this. Patient also denies being suicidal or homicidal. Patient denies having anyone after him and in the complaint there was Marisol mentioned and the patient states he knows no Marisol. Patient has no physical complaint either at this time. - Related Data Home Medications Medication Instructions Recorded Confirmed Fluticasone Propion/Salmeterol 1 puff INHALATION DIRECTED 02/27/24 02/27/24 [Advair 250-50 Diskus] Oxymorphone HCl [Opana ER] 5 mg PO DIRECTED 02/27/24 02/27/24 Tiotropium 2.5 Mcg/Puff [Spiriva 2 puff INHALATION DIRECTED 02/27/24 02/27/24 Respimat 2.5 Mcg] lisinopriL [Prinivil] 10 mg PO DIRECTED 02/27/24 02/27/24 metFORMIN HCL 1,000 mg PO DIRECTED 02/27/24 02/27/24 Allergies Allergy/AdvReac Type Severity Reaction Status Date / Time No Known Allergies Allergy Verified 02/27/24 12:18 Review of Systems ROS Statement: Those systems with pertinent positive or pertinent negative responses have been documented in the HPI. ROS Other: All systems not noted in ROS Statement are negative. Past Medical History Past Medical History: Diabetes Mellitus Additional Past Medical History / Comment(s): Dt controlled DM History of Any Multi-Drug Resistant Organisms: None Reported Past Surgical History: No Surgical Hx Reported, Orthopedic Surgery, Tonsillectomy Additional Past Surgical History / Comment(s): Lef tabove knee amputation 2020 Past Psychological History: No Psychological Hx Reported Smoking Status: Current every day smoker Past Alcohol Use History: Rare Past Drug Use History: None Reported General Exam - General Exam Comments Initial Comments: GENERAL: Patient is well-developed and well-nourished. Patient is nontoxic and well- hydrated and is in no acute distress. Patient is very malodorous ENT: Neck is soft and supple. No significant lymphadenopathy is noted. Oropharynx is clear. Moist mucous membranes. Neck has full range of motion without eliciting any pain. EYES: The sclera were anicteric and conjunctiva were pink and moist. Extraocular movements were intact and pupils were equal round and reactive to light. Eyelids were unremarkable. PULMONARY: Unlabored respirations. Good breath sounds bilaterally. No audible rales rhonchi or wheezing was noted. CARDIOVASCULAR: There is a regular rate and rhythm without any murmurs gallops or rubs. ABDOMEN: Soft and nontender with normal bowel sounds. SKIN: Skin is clear with no lesions or rashes and otherwise unremarkable. NEUROLOGIC: Patient is alert and oriented x3. Cranial nerves II through XII are grossly intact. Motor and sensory are also intact. Normal speech, volume and content. Symmetrical smile. MUSCULOSKELETAL: Normal extremities with adequate strength and full range of motion. LYMPHATICS: No significant lymphadenopathy is noted PSYCHIATRIC: Normal psychiatric evaluation. Patient denies any delusions or hallucinations. Patient denies any suicidal or homicidal ideations. Patient states he is looking forward to getting new leg so an extra week and walking may be work again Limitations: physical limitation Course Vital Signs 02/27/24 11:20 Temperature 97.4 F L Pulse Rate 96 Respiratory 18 Rate Blood Pressure 176/78 O2 Sat by Pulse 96 Oximetry Medical Decision Making - Medical Decision Making Was pt. sent in by a medical professional or institution ([facility] Dior, PLASTER FOREMAN, urgent care, hospital, or intermediate...) When possible be specific @ -No Did you speak to anyone other than the patient for history (EMS, parent, family, police, friend...)? What history was obtained from this source @ -No Did you review nursing and triage notes (agree or disagree)? Why? @ -I reviewed and agree with nursing and triage notes Were old charts reviewed (outside hosp., previous admission, EMS record, old EKG, old radiological studies, urgent care reports/EKG's, intermediate records)? Report findings @ -No Differential Diagnosis? @ -Differential Mental Health Depression, anxiety, bipolar, psychosis, schizophrenia, borderline personality, situational depression, adjustment disorder, behavioral disorder, brain tumor, malingering, substance abuse, encephalopathy, medication reaction, dementia, hypothyroidism, degenerative neurologic disorder, lupus.... This is not meant to be all-inclusive list EKG interpreted by me (3pts min.). @ -As above X-rays interpreted by me (1pt min.). @ -None done CT interpreted by me (1pt min.). @ -None done U/S interpreted by me (1pt. min.). @ -None done What testing was considered but not performed or refused? (CT, X-rays, U/S, labs)? Why? @ -None What meds were considered but not given or refused? Why? @ -None Did you discuss the management of the patient with other professionals (professionals i.e. , PA, PLASTER FOREMAN, lab, RT, psych nurse, licensed master social worker, finishing room operator, teacher, founder and chief technical officer, mental health case manager)? Give summary @ -EPS evaluated the patient spoke with psychiatry the patient will be admitted Was smoking cessation discussed for >3mins.? @ -No Was critical care preformed (if so, how long)? @ -No Were there social determinants of health that impacted care today? How? (Homelessness, low income, unemployed, alcoholism, drug addiction, transportation, low edu. Level, literacy, decrease access to med. care, intermediate, rehab)? @ -No Was there de-escalation of care discussed even if they declined (Discuss DNR or withdrawal of care, Hospice)? DNR status @ -No What co-morbidities impacted this encounter? (DM, HTN, Smoking, COPD, CAD, Ca ncer, CVA, ARF, Chemo, Hep., AIDS, mental health diagnosis, sleep apnea, morbid obesity)? @ -None Was patient admitted / discharged? Hospital course, mention meds given and route, prescriptions, significant lab abnormalities, going to OR and other pertinent info. @ -Patient's glucose was over 400 give the patient NovoLog 10 units. Patient will be admitted to the psych unit. Undiagnosed new problem with uncertain prognosis? @ -No Drug Therapy requiring intensive monitoring for toxicity (Heparin, Nitro, Insulin, Cardizem)? @ -No Were any procedures done? @ -No Diagnosis/symptom? @ -Acute psychosis Acute, or Chronic, or Acute on Chronic? @ -Default Uncomplicated (without systemic symptoms) or Complicated (systemic symptoms)? @ -Acute complicated Side effects of treatment? @ -No Exacerbation, Progression, or Severe Exacerbation? @ -No Poses a threat to life or bodily function? How? (Chest pain, [place], [place], pneumonia, PE, COPD, DKA, ARF, appy, cholecystitis, CVA, Diverticulitis, Homicidal, [place] icidal, threat to staff... and all critical care pts) @ -No - Lab Data Result diagrams: 02/27/24 12:07 02/27/24 12:07 Lab Results 02/27/24 02/27/24 02/27/24 Range/Units 12:07 12:07 12:07 WBC 6.9 (3.8-10.6) k/uL RBC 4.28 L (4.30-5.90) m/uL Hgb 14.1 (13.0-17.5) gm/dL Hct 43.7 (39.0-53.0) % MCV 102.1 H (80.0-100.0) fL MCH 32.8 (25.0-35.0) pg MCHC 32.2 (31.0-37.0) g/dL RDW 12.6 (11.5-15.5) % Plt Count 263 (150-450) k/uL MPV 6.9 Neutrophils % 65 % Lymphocytes % 22 % Monocytes % 6 % Eosinophils % 6 % Basophils % 1 % Neutrophils # 4.5 (1.3-7.7) k/uL Lymphocytes # 1.5 (1.0-4.8) k/uL Monocytes # 0.4 (0-1.0) k/uL Eosinophils # 0.4 (0-0.7) k/uL Basophils # 0.0 (0-0.2) k/uL Hypochromasia Slight Macrocytosis Slight Sodium 139 (137-145) mmol/L Potassium 4.3 (3.5-5.1) mmol/L Chloride 104 (98-107) mmol/L Carbon Dioxide 24 (22-30) mmol/L Anion Gap 11 mmol/L BUN 26 H (9-20) mg/dL Creatinine 0.81 (0.66-1.25) mg/dL Est GFR (CKD-EPI)AfAm >90 (>60 ml/min/1.73 sqM) Est GFR (CKD-EPI)NonAf >90 (>60 ml/min/1.73 sqM) Glucose 476 H (74-99) mg/dL POC Glucose (mg/dL) (70-110) mg/dL POC Glu Cath Lab Radiological Technologist ID Calcium 9.1 (8.4-10.2) mg/dL Total Bilirubin 0.4 (0.2-1.3) mg/dL AST 18 (17-59) U/L ALT 17 (4-49) U/L Alkaline Phosphatase 75 (38-126) U/L Total Protein 6.8 (6.3-8.2) g/dL Albumin 4.2 (3.5-5.0) g/dL Urine Color Light Yellow Urine Appearance Clear (Clear) Urine pH 5.0 (5.0-8.0) Ur Specific [place] 1.027 (1.001-1.035) Urine Protein Negative (Negative) Urine Glucose (UA) 4+ H (Negative) Urine Ketones Negative (Negative) Urine Blood Negative (Negative) Urine Nitrite Negative (Negative) Urine Bilirubin Negative (Negative) Urine Urobilinogen <2.0 (<2.0) mg/dL Ur Leukocyte Esterase Negative (Negative) Urine Opiates Screen Not Detected (NotDetected) Ur Oxycodone Screen Not Detected (NotDetected) Urine Methadone Screen Not Detected (NotDetected) Ur Barbiturates Screen Not Detected (NotDetected) U Tricyclic Antidepress Not Detected (NotDetected) Ur Phencyclidine Scrn Not Detected (NotDetected) Ur Amphetamines Screen Not Detected (NotDetected) U Methamphetamines Scrn Not Detected (NotDetected) U Benzodiazepines Scrn Not Detected (NotDetected) Urine Cocaine Screen Not Detected (NotDetected) U Marijuana (THC) Screen Not Detected (NotDetected) 02/27/24 Range/Units 13:36 WBC (3.8-10.6) k/uL RBC (4.30-5.90) m/uL Hgb (13.0-17.5) gm/dL Hct (39.0-53.0) % MCV (80.0-100.0) fL MCH (25.0-35.0) pg MCHC (31.0-37.0) g/dL RDW (11.5-15.5) % Plt Count (150-450) k/uL MPV Neutrophils % % Lymphocytes % % Monocytes % % Eosinophils % % Basophils % % Neutrophils # (1.3-7.7) k/uL Lymphocytes # (1.0-4.8) k/uL Monocytes # (0-1.0) k/uL Eosinophils # (0-0.7) k/uL Basophils # (0-0.2) k/uL Hypochromasia Macrocytosis Sodium (137-145) mmol/L Potassium (3.5-5.1) mmol/L Chloride (98-107) mmol/L Carbon Dioxide (22-30) mmol/L Anion Gap mmol/L BUN (9-20) mg/dL Creatinine (0.66-1.25) mg/dL Est GFR (CKD-EPI)AfAm (>60 ml/min/1.73 sqM) Est GFR (CKD-EPI)NonAf (>60 ml/min/1.73 sqM) Glucose (74-99) mg/dL POC Glucose (mg/dL) 495 H (70-110) mg/dL POC Glu Cath Lab Radiological Technologist ID Katerina Chisholm Calcium (8.4-10.2) mg/dL Total Bilirubin (0.2-1.3) mg/dL AST (17-59) U/L ALT (4-49) U/L Alkaline Phosphatase (38-126) U/L Total Protein (6.3-8.2) g/dL Albumin (3.5-5.0) g/dL Urine Color Urine Appearance (Clear) Urine pH (5.0-8.0) Ur Specific [place] (1.001-1.035) Urine Protein (Negative) Urine Glucose (UA) (Negative) Urine Ketones (Negative) Urine Blood (Negative) Urine Nitrite (Negative) Urine Bilirubin (Negative) Urine Urobilinogen (<2.0) mg/dL Ur Leukocyte Esterase (Negative) Urine Opiates Screen (NotDetected) Ur Oxycodone Screen (NotDetected) Urine Methadone Screen (NotDetected) Ur Barbiturates Screen (NotDetected) U Tricyclic Antidepress (NotDetected) Ur Phencyclidine Scrn (NotDetected) Ur Amphetamines Screen (NotDetected) U Methamphetamines Scrn (NotDetected) U Benzodiazepines Scrn (NotDetected) Urine Cocaine Screen (NotDetected) U Marijuana (THC) Screen (NotDetected) Disposition Clinical Impression: Acute psychosis Disposition: ADMITTED IP TO THIS HOSP Referrals: Chicho Loo MD [Primary Care Provider] - 1-2 days Time of Disposition: 14:18
[2024-02-27 12:29] LABS: Basophils % (A) 1 %; Eosinophils # (A) 0.4 k/uL (0-0.7); Eosinophils % (A) 6 %; HCT 43.7 % (39.0-53.0); HGB 14.1 gm/dL (13.0-17.5); Hypochromasia Slight; Lymphocytes # (A) 1.5 k/uL (1.0-4.8); Lymphocytes % (A) 22 %; MCH 32.8 pg (25.0-35.0); MCHC 32.2 g/dL (31.0-37.0); MCV 102.1 fL (80.0-100.0); Macrocytosis Slight; Mean Platelet Volume 6.9; Monocytes # (A) 0.4 k/uL (0-1.0); Monocytes % (A) 6 %; Neutrophils # (A) 4.5 k/uL (1.3-7.7); Neutrophils % (A) 65 %; Platelet Count 263 k/uL (150-450); RBC 4.28 m/uL (4.30-5.90); RDW 12.6 % (11.5-15.5); WBC 6.9 k/uL (3.8-10.6)
[2024-02-27 12:33] LABS: Appearance,Urine Clear (Clear); Bilirubin,Urine Negative (Negative); Blood,Urine Negative (Negative); Color,Urine Light Yellow; Glucose,Urine (UA) 4+ (Negative); Ketones,Urine Negative (Negative); Leukocyte Esterase,Urine Negative (Negative); Nitrite,Urine Negative (Negative); Protein,Urine Negative (Negative); Specific Gravity,Urine 1.027 (1.001-1.035); Urobilinogen,Urine <2.0 mg/dL (<2.0)
[2024-02-27 12:44] LABS: ALT 17 U/L (4-49); AST 18 U/L (17-59); African American GFR (CKD) >90 (>60 ml/min/1.73 sqM); Albumin 4.2 g/dL (3.5-5.0); Alkaline Phosphatase 75 U/L (38-126); Anion Gap 11 mmol/L; Blood Urea Nitrogen 26 mg/dL (9-20); Calcium 9.1 mg/dL (8.4-10.2); Carbon Dioxide 24 mmol/L (22-30); Chloride 104 mmol/L (98-107); Glucose 476 mg/dL (74-99); Non-African American GFR(CKD) >90 (>60 ml/min/1.73 sqM); Potassium 4.3 mmol/L (3.5-5.1); Sodium 139 mmol/L (137-145); Total Bilirubin 0.4 mg/dL (0.2-1.3); Total Protein 6.8 g/dL (6.3-8.2)
[2024-02-27 12:55] LABS: Amphetamine Screen,Urine Not Detected (NotDetected); Barbiturate Screen,Urine Not Detected (NotDetected); Benzodiazepines Screen,Urine Not Detected (NotDetected); Cocaine Screen,Urine Not Detected (NotDetected); Methadone Screen, Urine Not Detected (NotDetected); Opiate Screen,Urine Not Detected (NotDetected); Oxycodone Screen, Urine Not Detected (NotDetected); Phencyclidine Screen,Urine Not Detected (NotDetected); Tricyclic Antidepressant,Urine Not Detected (NotDetected); Urn Cannabinoid Scrn Not Detected (NotDetected)
[2024-02-27] MEDS: INSULIN ASPART (NovoLOG) 100 UNIT/ML VIAL SQ ONE (13:36)
[2024-02-27 13:44] LABS: Glucose,Whole Blood 495 mg/dL (70-110)
[2024-02-27 18:37] LABS: Glucose,Whole Blood 182 mg/dL (70-110)
[2024-02-27] MEDS ORDERED: OXYMORPHONE HCL 5 MG TABLET PO PRN (19:27)
[2024-02-27] MEDS: metFORMIN 500 MG TAB PO SCH (21:50)
[2024-02-27] MEDS: NON FORMULARY DRUG (Fluticasone Propion/Salmeterol [Advair 250-50 Diskus] 1 EACH Each) INHALATION SCH (22:41)
[2024-02-27] MEDS: NON FORMULARY DRUG (Tiotropium 2.5 Mcg/Puff 10 PUFF Each) INHALATION SCH (22:41)
[2024-02-28] MEDS: IPRATROPIUM-ALBUTEROL 3 ML NEB INHALATION STA (00:11)
[2024-02-28] MEDS: lisinopriL 10 MG TAB PO SCH (08:28)
[2024-02-28 20:48] LABS: Glucose,Whole Blood 310 mg/dL (70-110)
[2024-02-29] MEDS: SYMBICORT 80-4.5 MCG INHALER INHALATION SCH (04:02)
[2024-02-29 12:00] LABS: Glucose,Whole Blood 219 mg/dL (70-110)
[2024-02-29 22:07] LABS: Glucose,Whole Blood 308 mg/dL (70-110)
[2024-03-01 12:41] LABS: Glucose,Whole Blood 277 mg/dL (70-110)
[2024-03-01 21:02] VITALS: BP 130/72; PULSE 75; RESP 16; TEMP 97.7
== END 2024-03-01 21:04 | disposition other institution (70) ==
LOC: EC 11:11
DX: F23 Brief psychotic disorder (principal); F17.200 Nicotine dependence, unspecified, uncomplicated
CPT/HCPCS: 36415; 80053; 80306; 81003; 82075; 85025; 94640; 99285